=== PATIENT | female | born 1955 | race Caucasian/White ===

== ENCOUNTER 2017-11-26 09:32 | Outpatient (CLI) | payer MEDICARE | END 2017-11-26 09:33 | disposition home or self-care (01) | LOC: BICMAMMO 09:32 | PROVIDERS: ATTEND Family Medicine | DX: Z12.31 Encounter for screening mammogram for malignant neoplasm of breast (principal); Z80.3 Family history of malignant neoplasm of breast | CPT/HCPCS: 77063; 77067 ==

== ENCOUNTER 2019-02-14 00:31 | Emergency (ER) | payer MEDICARE ==
[2019-02-14 01:21] LABS: #Eosinphils 0.3 thou/uL (0.0-0.7); #Lymphocytes 1.6 thou/uL (1.20-3.40); #Neutrophils 8.5 thou/uL (1.40-6.50); %Basophils 0.2 % (0.0-1.0); %Eosinophils 2.6 % (0.0-10.0); %Lymphocytes 13.9 % (21.0-51.0); %Monocytes 8.6 % (0.0-10.0); %Neutrophils 74.7 % (42.0-75.0); Hemoglobin 13.3 g/dL (12.0-16.0); Mean Corpuscular HGB CONC 33.4 g/dL (32.0-36.0); Mean Corpuscular Hemoglobin 31.5 pg (27.0-31.0); Mean Corpuscular Volume 94.4 fL (78.0-98.0); Mean Platelet Volume 7.6 fL (7.4-10.4); Platelet Count 295 thou/uL (130-400); RBC Distribution Width 12.2 % (11.5-14.5); Red Blood Cell (RBC) Count 4.21 mill/uL (4.20-5.40); White Blood Cell (WBC) Count 11.4 thou/uL (4.8-10.8)
[2019-02-14 01:42] LABS: ALT (SGPT) 18 U/L (8-55); AST (SGOT) 19 U/L (5-34); Albumin 4.3 g/dL (3.4-4.8); Alkaline Phosphatase 88 U/L (40-150); Anion Gap 12 mmol/L (10-20); BUN (Urea Nitrogen) 21 mg/dL (9.8-20.1); Bilirubin, Total 0.4 mg/dL (0.2-1.2); Calc. Creatinine Clearance 0 mL/min (70-130); Calcium 11.4 mg/dL (7.8-10.44); Carbon Dioxide 28 mmol/L (23-31); Chloride 103 mmol/L (98-107); Estimated GFR-MDRD 43; Globulin 2.4 g/dL (2.4-3.5); Glucose 109 mg/dL (80-115); Lipase 24 U/L (8-78); Potassium 4.4 mmol/L (3.5-5.1); Protein, Total 6.7 g/dL (6.0-8.3); Sodium 139 mmol/L (136-145)
--- NOTE | 2019-02-14 08:12 | RAD ---
PA CHEST: Date: 02/14/19 HISTORY: Chest pain. FINDINGS: Lungs are clear. Heart and mediastinum unremarkable. Vasculature normal. IMPRESSION: No acute findings. POS: OFF
--- NOTE | 2019-02-18 12:31 | EKG ---
Test Reason : CHEST PAIN Blood Pressure : / mmHG Vent. Rate : 069 BPM Atrial Rate : 069 BPM P-R Int : 186 ms QRS Dur : 094 ms QT Int : 394 ms P-R-T Axes : 038 -14 035 degrees QTc Int : 422 ms Normal sinus rhythm Minimal voltage criteria for LVH, may be normal variant Borderline ECG Confirmed by JESSI CONTRERAS M.D. ([id number]), editorial writer JAVIER ESTEVEZ ([id number]) on 02/18/2019 12:31:17 PM Referred By: AGNES LAO Confirmed By:JESSI CONTRERAS M.D.
== END 2019-02-14 02:07 | disposition home or self-care (01) ==
LOC: ERS 00:31
DX: R07.2 Precordial pain (principal); I10 Essential (primary) hypertension; F31.9 Bipolar disorder, unspecified; F41.9 Anxiety disorder, unspecified; Z79.899 Other long term (current) drug therapy
CPT/HCPCS: 36415; 71045; 80053; 83690; 84484; 85025; 93005

== ENCOUNTER 2019-02-25 14:31 | Inpatient (IN) | payer MEDICARE ==
[~2019-02-25 14:31] MED LIST: ISOVUE-370 76%-LOCM 1 ML ONE
[2019-02-25 14:59] LABS: Actual Bicarbonate (HCO3a) 21.6 mEq/L (22-28); Analyzer IN Cardio ER; Base Excess (BEa) -1.3 mEq/L (-2.0 to +3.0); CO2 Tension 30.7 mmHg (35.0-45.0); Calcium, Ionized 1.18 mmol/L (1.12-1.30); Carboxyhemoglobin (COHb) 0.1 gm% (0.0-3.0); Hemoglobin (Hb) 12.4 g/dL (12.0-16.0); O2 Tension (PaO2) 73.1 mmHg (> 80.0); Potassium - ABG Lab 4.43 mmol/L (3.70-5.30); pH, Arterial 7.47 (7.35-7.45)
[2019-02-25 15:00] LABS: ALV-art Gradient 88.165 (0-20); Puncture Site RRA
--- NOTE | 2019-02-25 15:01 | RAD ---
EXAM: XR Chest 1 View Portable PROVIDED CLINICAL HISTORY: Shortness of breath COMPARISON: 02/14/2019 FINDINGS: Cardiac silhouette appears enlarged. Evaluation is limited by patient body habitus. Prominence of the pulmonary vasculature. Blunting of each costophrenic angle. No definite focal consolidation or pneumothorax. IMPRESSION: Cardiomegaly and findings suggesting congestive failure with bilateral pleural effusions. Follow-up r ecommended.
[2019-02-25 15:06] LABS: #Basophils 0.1 thou/uL (0.0-0.2); #Eosinphils 0.1 thou/uL (0.0-0.7); #Lymphocytes 1.4 thou/uL (1.20-3.40); #Neutrophils 12.4 thou/uL (1.40-6.50); %Basophils 0.4 % (0.0-1.0); %Eosinophils 0.7 % (0.0-10.0); %Lymphocytes 9.6 % (21.0-51.0); %Monocytes 6.7 % (0.0-10.0); %Neutrophils 82.7 % (42.0-75.0); Hemoglobin 11.7 g/dL (12.0-16.0); Mean Corpuscular HGB CONC 32.9 g/dL (32.0-36.0); Mean Corpuscular Volume 94.1 fL (78.0-98.0); Mean Platelet Volume 6.8 fL (7.4-10.4); Platelet Count 554 thou/uL (130-400); RBC Distribution Width 12.2 % (11.5-14.5); Red Blood Cell (RBC) Count 3.78 mill/uL (4.20-5.40)
[2019-02-25 15:30] LABS: ALT (SGPT) 18 U/L (8-55); AST (SGOT) 15 U/L (5-34); Albumin 3.7 g/dL (3.4-4.8); Alkaline Phosphatase 198 U/L (40-150); Anion Gap 13 mmol/L (10-20); BUN (Urea Nitrogen) 13 mg/dL (9.8-20.1); Bilirubin, Total 0.6 mg/dL (0.2-1.2); CK (CPK) 28 U/L (29-168); Calc. Creatinine Clearance 0 mL/min (70-130); Calcium 9.3 mg/dL (7.8-10.44); Carbon Dioxide 22 mmol/L (23-31); Chloride 101 mmol/L (98-107); Estimated GFR-MDRD 59; Globulin 3.1 g/dL (2.4-3.5); Glucose 108 mg/dL (80-115); Lipase 7 U/L (8-78); Potassium 4.4 mmol/L (3.5-5.1); Protein, Total 6.8 g/dL (6.0-8.3); Sodium 132 mmol/L (136-145)
--- NOTE | 2019-02-25 16:11 | CT ---
EXAM: CT pulmonary angiogram with IV contrast and 3-D MIP reconstructions PROVIDED CLINICAL HISTORY: None COMPARISON: None FINDINGS: There is a large pericardial effusion. There are moderate-large bilateral pleural effusions. There is no evidence for central or segmental pulmonary embolus. Bibasilar subsegmental atelectatic changes are noted. No pleural fluid or pneumothorax apparent. No evidence for thoracic lymph node enlargement . The airway appears patent and of normal caliber. There is reflux of contrast material into the hepatic veins suggesting right heart dysfunction. The osseous structures demonstrate no concerning ly tic or blastic lesions. IMPRESSION: 1. No evidence for central or segmental pulmonary embolus. 2. Large pericardial effusion and moderate-large bilateral pleural effusions. 3. Evidence for right heart dysfunction.
[2019-02-25] MEDS ORDERED: Furosemide 40 MG/4 ML VIAL ONE (16:36)
[2019-02-25] MEDS ORDERED: Aspirin Chewable 81 MG TAB ONE (16:36)
[2019-02-25] MEDS ORDERED: Nitroglycerin 2% Ointment 1 INCH/1 GM Packet ONE (16:36)
[2019-02-25 18:10] LABS: Troponin I 0.011 ng/mL (< 0.028)
[2019-02-25] MEDS ORDERED: Ondansetron PF 4 MG/2 ML Vial IVP PRN (18:19)
[2019-02-25] MEDS ORDERED: Ondansetron ODT 4 MG TAB SL PRN (18:19)
--- NOTE | 2019-02-25 18:36 | PDOC.FPRHP ---
- History of Present Illness Chief Complaint: SOB History of Present Illness: Mrs. Smith is a 63 y/o female who presents to the ED with an 11 day history of SOB. She states that she was seen in the ED previously for the same complaint, but had a negative CXR and EKG and was DC'd without intervention or medication. She presents again to with the same complaint and no other associated symptoms. Her was present during the time of the evaluation and assisted with much of the HPI. She denied any recent fevers, chills, N/V/D or night sweats, sick contacts, recent travel, history of malignancy or history of Rheumatoid associated disorders. ED Course: While in the ED, Mrs. Smith's O2Sat was found to be at 90% on Room Air, and she was subsequently placed on 3L NC. An EKG showed low amplitude voltage but was otherwise negative. A CT scan was negative for pulmonary embolus, per the ED staff, but a CXR demonstrated grossly enlarged pericardial effusion and bilateral pulmonary effusions. 40 mg of Lasix were administered via IV and the patient was transferred to the [facility]. - Allergies/Adverse Reactions Allergies Allergy/AdvReac Type Severity Reaction Status Date / Time No Known Allergies Allergy Verified 02/25/19 19:55 - History PMHx: PSHx: FHx: Social: - Review of Systems General: reports: fatigue. denies: fever/chills, weight/appetite/sleep changes , night sweats Eyes: denies: vision changes ENT: denies: nasal congestion, rhinorrhea Respiratory: reports: cough (Light cough without sputum production or hemoptysis - patient rated it as "mild") Cardiovascular: denies: chest pain, palpitation, edema, orthopnea Gastrointestinal: denies: nausea, vomiting, diarrhea, constipation, abdominal pain, GI bleeding Genitourinary: denies: dysuria, discharge Skin: denies: rashes, jaundice Musculoskeletal: denies: pain, tenderness Neurological: denies: syncope, seizure Psychological: reports: anxiety, depression - Vital signs BP: [148/93] HR: [65] RR: [39] Tmax: [] Pox: []% on [] Wt: [] - Physical Exam Constitutional: awake, alert and oriented, well developed, other (Noticeably tachypneic) HEENT: normocephalic and atraumatic, PERRLA, EOMI, conjunctiva clear, grossly normal vision, grossly normal hearing, normal nasal mucosa, MMM Neck: supple, FROM, trachea midline, no JVD Chest: no-tender to palpation, no lesions Heart: other (Diminished heart sounds) Lungs: CTAB, no rales/rhonchi, no wheezing, no retractions Abdomen: soft, non-tender, no masses/distention, no hernias Musculoskeletal: normal structure, normal tone, ROM grossly normal Neurological: no focal deficit, normal sensation Skin: no rash/lesions, no jaundice Heme/Lymphatic: no unusual bruising or bleeding, no purpura, no petechia Psychiatric: good judgment and insight, intact recent and remote memory FMR H&P: Results - Labs Result Diagrams: 02/25/19 18:40 02/25/19 18:40 Lab results: WBC 15.0 thou/uL (4.8-10.8) H 02/25/19 14:45 Hgb 11.7 g/dL (12.0-16.0) L 02/25/19 14:45 Hct 35.6 % (36.0-47.0) L 02/25/19 14:45 MCV 94.1 fL (78.0-98.0) 02/25/19 14:45 Plt Count 554 thou/uL (130-400) H 02/25/19 14:45 Neutrophils % 82.7 % (42.0-75.0) H 02/25/19 14:45 ABG pH 7.47 (7.35-7.45) H 02/25/19 14:48 ABG pCO2 30.7 mmHg (35.0-45.0) L 02/25/19 14:48 ABG pO2 73.1 mmHg (> 80.0) 02/25/19 14:48 Sodium 132 mmol/L (136-145) L 02/25/19 14:45 Potassium 4.4 mmol/L (3.5-5.1) 02/25/19 14:45 Chloride 101 mmol/L (98-107) 02/25/19 14:45 Carbon Dioxide 22 mmol/L (23-31) L 02/25/19 14:45 BUN 13 mg/dL (9.8-20.1) 02/25/19 14:45 Creatinine 0.96 mg/dL (0.6-1.1) 02/25/19 14:45 Glucose 108 mg/dL (80-115) 02/25/19 14:45 Calcium 9.3 mg/dL (7.8-10.44) 02/25/19 14:45 Total Bilirubin 0.6 mg/dL (0.2-1.2) 02/25/19 14:45 AST 15 U/L (5-34) 02/25/19 14:45 ALT 18 U/L (8-55) 02/25/19 14:45 Alkaline Phosphatase 198 U/L (40-150) H 02/25/19 14:45 Creatine Kinase 28 U/L (29-168) L 02/25/19 14:45 B-Natriuretic Peptide 86.4 pg/mL (0-100) 02/25/19 14:45 Serum Total Protein 6.8 g/dL (6.0-8.3) 02/25/19 14:45 Albumin 3.7 g/dL (3.4-4.8) 02/25/19 14:45 Lipase 7 U/L (8-78) L 02/25/19 14:45 - EKG Interpretation EKG: Low Voltage - Radiology Interpretation Chest x-ray Status: image reviewed by me (Pericardial effusion with bilateral pleural effusions) FMR H&P: A/P - Problem List (1) Shortness of breath Current Visit: Yes Status: Acute Code(s): R06.02 - SHORTNESS OF BREATH (2) Pericardial effusion without cardiac tamponade Current Visit: Yes Status: Acute Code(s): I31.3 - PERICARDIAL EFFUSION ( NONINFLAMMATORY) (3) Pleural effusion Current Visit: Yes Status: Acute Code(s): J90 - PLEURAL EFFUSION, NOT ELSEWHERE CLASSIFIED (4) Depression Current Visit: Yes Status: Acute Code(s): F32.9 - MAJOR DEPRESSIVE DISORDER , SINGLE EPISODE, UNSPECIFIED - Plan 1. Acute Hypoxemic Respiratory Failure, likely 2/2 to Pericardial Effusion and Pleural Effusions, bilaterally -Continued shortness of breath and rapid change in CXR concerning due to unknown etiology of above -EKG consistent with pericardial effusion or other obstructive process -Physical exam unremarkable other than tachypnea -STAT ECHO: Pending -Blood Cultures: Pending -Urine Cultures: Pending -CRP: Pending -RA Factor: Pending -HENRI: Pending -RPR: Pending -HIV: Pending -Continue Lasix 40 mg IV -Cardiology consulted, currently awaiting recommendation -Admit to IMCU and maintain O2Sats with nasal canula 2. Pericardial Effusion -See #1 3. Pleural Effusion, Bilaterally -See #1 4. Depression -Restart home medication regimen when patient is stable FMR H&P: Upper Level - Plan Date/Time: 02/25/191834 I, Marcelino Santiago PGY2, have evaluated this patient and agree with findings/ plan as outlined by electrical intern resident. Pertinent changes/additions are listed here. 63 yo F presents for SOB for some weeks. Reports her SOB has increased in the last month. Worse with exertion, endorses orthopnea and paroxysmal nocturnal dyspnea. Has been seen recently in the ED but had relatively normal CXR and was sent home. Today in ED she got CTA chest which shows large pericardial effusion and pleural effusions bilaterally. She sats well on 2L o2 and appears to slightly volume overloaded on exam with +1 pitting edema in LEs. Pt recieved one dose of lasix in ED. Our assessment and plan is as follows. Pericardial effusion A-Unknown etiology at this time. Pt appears to be stable but uncomfortable with work of breathing. No prior cardiac hx. Pt s/p once dose lasix P- admit to IMCU for monitoring -stat ECHO -cards consult -will order labs to workup effusion Pleural effusion A- likely related to cardiac issues. P- treat problems as above -monitor respiratory status closely in IMCU Depression, bipolar -will resume home meds when pt is stable CODE: FULL all other chronic problems per electrical intern note Addendum - Attending - Attending Attestation Date/Time: 02/25/192043 I personally evaluated the patient and discussed the management with Dr. Lama /Pamela. H&P repeated by me. I agree with the History, Examination, Assessment and Plan documented above with any addition or exceptions noted below. 63 y/o WF who was seen in ER on 02/14 for dyspnea- had EKG and CXR which were normal. Over the past week her symptoms of shortness of breath have worsened and so she returned for reevaluation. In ER found to have cardiomegaly and pleural effusions. Denies fever, chills, weight loss, rash, joint pain. Did have a mild cough a nasal congestion a few weeks ago. HR 80, afebrile, O2 sat 94% on 3L NC, RR 24-30 CV: distant heart sounds. No m, g, r Lungs: decreased at bilateral bases Ext: trace to 1+ edema Labs and imaging reviewed. 1) Acute onset pericardial effusion and pleural effusion- differential includes inflammatory vs infections vs malignant- will get CRP, HENRI/RF, RPR, HIV. Stat ECHO. Cardiology consult. To IMCU to ensure monitoring for signs of cardiac tamponade. 2) Depression- continue home meds
[2019-02-25 18:48] LABS: #Lymphocytes 1.1 thou/uL (1.20-3.40); #Monocytes 0.9 thou/uL (0.11-0.59); #Neutrophils 14.1 thou/uL (1.40-6.50); %Eosinophils 0.3 % (0.0-10.0); %Lymphocytes 6.9 % (21.0-51.0); %Monocytes 5.8 % (0.0-10.0); Hemoglobin 11.4 g/dL (12.0-16.0); Mean Corpuscular Volume 94.1 fL (78.0-98.0); Mean Platelet Volume 6.5 fL (7.4-10.4); Platelet Count 504 thou/uL (130-400); RBC Distribution Width 12.2 % (11.5-14.5); Red Blood Cell (RBC) Count 3.66 mill/uL (4.20-5.40); White Blood Cell (WBC) Count 16.2 thou/uL (4.8-10.8)
[2019-02-25 19:16] LABS: ALT (SGPT) 16 U/L (8-55); AST (SGOT) 14 U/L (5-34); Albumin 3.6 g/dL (3.4-4.8); Alkaline Phosphatase 193 U/L (40-150); Anion Gap 13 mmol/L (10-20); BUN (Urea Nitrogen) 13 mg/dL (9.8-20.1); Bilirubin, Total 0.5 mg/dL (0.2-1.2); Calc. Creatinine Clearance 0 mL/min (70-130); Carbon Dioxide 23 mmol/L (23-31); Chloride 101 mmol/L (98-107); Estimated GFR-MDRD 56; Glucose 120 mg/dL (80-115); Potassium 3.9 mmol/L (3.5-5.1); Protein, Total 6.6 g/dL (6.0-8.3); Sodium 133 mmol/L (136-145)
[2019-02-25 19:26] LABS: Syphilis Antibody Nonreactive (Nonreactive); Syphilis Antibody Index 0.05 S/CO (<1.00 Non-Reactive)
[2019-02-25 19:28] LABS: HIV (1/2) Antibody/Antigen Non-Reactive (NonReactive); HIV 1/2 INDEX 0.06 S/CO (<1.00)
[2019-02-25 19:47] VITALS: BMI 45.6
--- NOTE | 2019-02-25 20:29 | CON ---
DATE OF CONSULTATION: 02/25/2019 INDICATION FOR CONSULTATION: A 63-year-old female with a history of shortness of breath for the last 7 days. She recently was in the emergency room complaining of some chest tightness and back tightness. She had a chest x-ray performed and apparently there were no significant abnormalities according to the patient. She has had some improvement for few days, but within the last 7 to 10 days, she has had more shortness of breath and found more difficult to breathe. She again referred to the emergency room, and CT of the chest shows bilateral moderate-sized pleural effusions and also [id number] pericardial effusion. Her blood pressure has remained stable; however, does not appear to be tamponade at this time, but echocardiogram is still pending. She has been given IV Lasix and we will need to be very careful in order not to drop the blood pressure if she has any kind of tamponade physiology. She has had no recent illnesses that she can recall. However, she did say about several days ago, she did have a temperature of 101.3 I believe, but otherwise has not been sick, has not had any other significant past medical history such as pneumonias or flu or influenza. She does have some hypertension, but otherwise denied any hypercholesterolemia or diabetes. She did smoke in the past, she stopped about 20 years ago, but smoked for about 25 years a half-a-pack a day from the age of 17 to 42. She had been placed on blood pressure medicines also, but these were stopped due to rash and she was changed over, she believes to hydrochlorothiazide, and has remained stable. PAST MEDICAL HISTORY: Significant for; 1. Tonsillectomy. 2. Hysterectomy. 3. Cholecystectomy. 4. Nephrolithiasis. SOCIAL HISTORY: She is . She had 1 biological child at age 40, who is now . He had problems with drug use. She smoked in the past. No alcohol. FAMILY HISTORY: Noncontributory. ALLERGIES: NONE. MEDICATIONS: Included the hydrochlorothiazide. In the emergency room, I believe she was given Lasix, aspirin, and nitroglycerin. She also was given subcu Lovenox for DVT prophylaxis and Zofran. REVIEW OF SYSTEMS: She wears glasses to read. Otherwise, a 12-point review of systems is unremarkable except as noted in history of present illness. She has not had any weight gain or weight loss. No neurological complaints. No complaints. No GI complaints. No pulmonary complaints except for the shortness of breath recently. PHYSICAL EXAMINATION: GENERAL: Reveals a well-developed, well-nourished, obese female. VITAL SIGNS: Blood pressure 133/65, heart rate is 77. She is afebrile at this time. HEENT: Shows the head to be normocephalic and atraumatic. Carotid pulses are present. I did not hear any bruits. CHEST: Decreased breath sounds at the bases, but no rales or rhonchi were noted. CARDIOVASCULAR: Heart sounds are somewhat distant. I did not hear any significant murmurs, heaves, thrills, bruits, or rubs. ABDOMEN: Obese with positive bowel sounds. No organomegaly or masses or tenderness are noted. EXTREMITIES: Showed 1+ lower extremity edema. Pedal pulses are present. NEUROLOGIC: She appears to be intact without any focal motor deficits. CARDIOVASCULAR STUDIES: Her EKG shows a normal sinus rhythm with decreased R-wave progression in V1 through V3, which could be compatible with an old anterior myocardial infarction. Otherwise, there were no significant abnormalities noted. LABORATORY STUDIES: Her laboratory data shows a WBC of 16.2, hemoglobin 11.4, hematocrit 34.4, platelet count was 504,000. Her sodium was 132, potassium 4.4, chloride 101, bicarb was 22, creatinine 0.96 with BUN of 13 and blood sugar was 108. Cardiac enzymes were negative. Alkaline phosphatase was 198. Her C-reactive protein was 10.15. BNP was 86. IMAGING STUDIES: Chest x-ray shows evidence of some cardiomegaly, which may be due to the pericardial effusion as well as bilateral pleural effusions. Also, the CT scan is somewhere showing bilateral pleural effusions and a pericardial effusion. Her previous chest x-ray on 02/14/2019, 11 days ago, did not show any significant acute findings. IMPRESSION AND PLAN: New-onset pleural effusions, pericardial effusion patient with shortness of breath, uncertain etiology. She did say she had some fever a few days ago and this may be viral etiology. There is no indication that she had pleural effusions 10 days ago. Laboratory data has already been sent for rheumatological evaluation. Also, laboratory data was sent for thyroid function. It is possible that she has had some viral illness, which may have caused this. On the previous chest x-ray also, did not indicate that the patient had any cardiomegaly and this appears to be an acute problem. I would be very careful with diuretics in this patient, should she have symptoms of tamponade, as we would not want to diurese the patient too much with the pericardial effusion as she would become significantly hypotensive and would require an urgent pericardiocentesis. She was given diuretics in the emergency room and is thus far tolerating that and she has had good urine output. We will continue to monitor her. We will also obtain an urgent or stat echocardiogram for evaluation of the pericardial effusion to see if there is any evidence of pericardial tamponade. As far as her other medical problems such as hypertension, this is under good control at this time with the present medications. Would hold off on the nitroglycerin unless she has EKG changes that would indicate ischemia. Once the pericardial effusion and pleural effusions are addressed, she may need to undergo further evaluation by stress testing. We will be more than happy to continue to follow the patient with you. If there is significant pericardial effusion or any evidence of tamponade, we will ask the CT surgeons to undergo a pericardiocentesis. She may also need to undergo a diagnostic thoracentesis. Job ID: [id number]
[2019-02-25] MEDS ORDERED: Lactated Ringer's 1,000 ML IV SCH (21:00)
[2019-02-25 21:06] LABS: Band 4 % (5-11); Hemoglobin 11.9 g/dL (12.0-16.0); Lymphocytes 10 % (21-51); MDiff Complete? YES; Mean Corpuscular HGB CONC 33.2 g/dL (32.0-36.0); Mean Corpuscular Hemoglobin 31.4 pg (27.0-31.0); Mean Corpuscular Volume 94.7 fL (78.0-98.0); Mean Platelet Volume 6.8 fL (7.4-10.4); Monocytes 5 % (0-10); Neutrophil 81 % (42-75); Platelet Count 567 thou/uL (130-400); Platelet Morphology Comment Appears Increased; RBC Distribution Width 12.3 % (11.5-14.5); RBC Morphology Normal; Red Blood Cell (RBC) Count 3.78 mill/uL (4.20-5.40); White Blood Cell (WBC) Count 16.6 thou/uL (4.8-10.8)
[2019-02-25 21:16] LABS: Troponin I 0.025 ng/mL (< 0.028)
[2019-02-25] MEDS ORDERED: Nitroglycerin 2% Ointment 1 INCH/1 GM Packet TOP SCH (22:00)
[2019-02-26] MEDS ORDERED: Furosemide 40 MG/4 ML VIAL SLOW IVP SCH (04:00)
--- NOTE | 2019-02-26 05:17 | PDOC.FM ---
- Subjective Subjective: Mrs. Smith was resting comfortably at the time of evaluation and reported no overnight events. She denies any chest pain, shortness of breath or N/V/D. She states that her breathing has greatly improved since her presentation to the ED. - Objective Vital Signs & Weight: Vital Signs (12 hours) Temp Pulse Resp BP Pulse Ox 02/26/19 03:57 98.8 F 02/25/19 23:41 97.7 F 02/25/19 22:12 80 27 H 115/78 91 L 02/25/19 21:00 79 22 H 95 02/25/19 20:00 75 25 H 133/65 92 L 02/25/19 19:47 98.4 F 02/25/19 19:00 78 27 H 133/65 93 L Weight Weight 105.868 kg Most Recent Monitor Data Heart Rate from ECG 78 NIBP 131/72 NIBP BP-Mean 91 Respiration from ECG 26 SpO2 93 I&O: 02/24/19 02/25/19 02/26/19 06:59 06:59 06:59 Output Total 250 Balance -250 Result Diagrams: 02/25/19 20:41 02/25/19 18:40 Phys Exam - Physical Examination Constitutional: NAD HEENT: PERRLA, moist MMs, sclera anicteric, oral pharynx no lesions Neck: no nodes, no JVD, supple, full ROM Respiratory: no wheezing, no rales, no rhonchi, clear to auscultation bilateral Poor air movement Cardiovascular: no significant murmur, no rub Muffled heart sounds, difficult to assess via auscultation Gastrointestinal: soft, non-tender, no distention, positive bowel sounds Musculoskeletal: no edema, pulses present Neurological: non-focal, moves all 4 limbs Lymphatic: no nodes Psychiatric: normal affect Skin: no rash Dx/Plan (1) Shortness of breath Code(s): R06.02 - SHORTNESS OF BREATH Status: Acute (2) Pericardial effusion without cardiac tamponade Code(s): I31.3 - PERICARDIAL EFFUSION (NONINFLAMMATORY) Status: Acute (3) Pleural effusion Code(s): J90 - PLEURAL EFFUSION, NOT ELSEWHERE CLASSIFIED Status: Acute (4) Depression Code(s): F32.9 - MAJOR DEPRESSIVE DISORDER, SINGLE EPISODE, UNSPECIFIED Status : Acute - Plan Plan: 1. Acute Hypoxemic Respiratory Failure, likely 2/2 to Pericardial Effusion and Pleural Effusions, bilaterally -Continued shortness of breath and rapid change in CXR concerning due to unknown etiology of above -EKG consistent with pericardial effusion or other restrictive process -Physical exam unremarkable other than tachypnea and muffled heart sounds - breathing greatly improved since 02/25 -STAT Echo: Early Cardiac Tamponade -Blood Cultures: Pending -Urine Cultures: Pending -CRP: 10.15 (H) -RA Factor: Pending -HENRI: Pending -RPR: Negative -HIV: Negative -Cardiology consulted on 02/25 - currently awaiting additional recommendations -CV Surgery consulted on 02/26 - will perform pericardial window on 02/26 2. Pericardial Effusion -See #1 3. Pleural Effusion, Bilaterally -See #1 4. Depression -Restart home medication regimen when patient is stable Dispo: Continue to augment respiratory efforts with O2 3L via nasal canula. Await additional recommendations from Cardiology and/or CV Surgery. Addendum - Attending - Attending Attestation Date/Time: 02/26/19 1045 I personally evaluated the patient and discussed the management with Dr. Lama at 0730 am. I agree with the History, Examination, Assessment and Plan documented above with any addition or exceptions noted below. Large pericardial effusion with early tamponade seen on ECHO- appreciate cards and CV surgery recs. To OR for pericardial window. No obvious source. Will see what pericardial fluid shows and f/u on HENRI/RF once they return. Possible viral origin. Pleural effusions- repeat CXR in am to monitor size
[2019-02-26] MEDS ORDERED: Fentanyl 100 MCG/2 ML VIAL ONE (07:41)
[2019-02-26] MEDS: Enoxaparin Sodium 40 MG/0.4 ML SYRINGE SC SCH (08:15)
[2019-02-26] MEDS ORDERED: traMADol HCl 50 MG TAB PO PRN (09:17)
[2019-02-26] MEDS ORDERED: Fentanyl 100 MCG/2 ML VIAL SLOW IVP PRN (09:17)
[2019-02-26] MEDS ORDERED: SUGAMMADEX SODIUM 200 MG/2 ML VIAL ONE (09:28)
[2019-02-26] MEDS ORDERED: Albuterol Sulfate 1.25 MG/3 ML NEB ONE (09:42)
--- NOTE | 2019-02-26 09:45 | CON ---
DATE OF CONSULTATION: HISTORY OF PRESENT ILLNESS: A 63-year-old female, who is previously in fairly good health, lives a very sedentary life, who has noticed some dyspnea even with her minimal activities for the past week. She was seen about a month ago with an x-ray that was rather unremarkable when her symptoms initially began mildly. On this admission, her chest x-ray showed a much larger cardiac silhouette, and the CT scan confirmed bilateral pleural effusions and pericardial effusions. Cardiac echo showed pre-tamponade findings with normal left ventricular function. PAST MEDICAL HISTORY: Includes hypertension. She has a remote smoking history, but none in about 20 years. PAST SURGICAL HISTORY: Includes hysterectomy and cholecystectomy. SOCIAL HISTORY: She lives with her . She states that her day usually consist of sitting in front of the TV and sleeping. MEDICATIONS: Include hydrochlorothiazide with no allergies. PHYSICAL EXAMINATION: GENERAL: Obese female in no distress. VITAL SIGNS: BMI of 42, blood pressure of 127, heart rate of 80. NECK: No carotid bruits. LUNGS: Clear breath sounds anteriorly. CARDIAC: Distant heart sounds. No murmurs. ABDOMEN: Quite obese, protuberant, nontender. EXTREMITIES: Mild bilateral pretibial edema. IMAGING STUDIES: EKG, poor R-wave progression. LABORATORY DATA: Slightly elevated white count 12 to 16,000. Enzymes were negative. PLAN: At this time is for pericardial window and informed consent has been obtained. Job ID: [id number]
[2019-02-26 09:56] LABS: RBC Count-Automated (BF) 700076 /cumm; WBC/Nucleated-Auto (BF) 1851 uL
[2019-02-26 10:15] LABS: BF Color Red; Body Fluid Source Pericardial Fluid; Clarity Cloudy/Turbid (Clear); Tube # EDTA
[2019-02-26 11:54] LABS: BF Segmented Neutrophils 37 %; Cell Count Non Hematic 5 %; Lymphocytes 57 %
[2019-02-26] MEDS ORDERED: PROPOFOL 200 MG/20 ML VIAL ONE (16:08)
[2019-02-26] MEDS ORDERED: Glycopyrrolate 0.2 MG/ML 5 ML SYRINGE ONE (16:08)
[2019-02-26] MEDS ORDERED: Dexamethasone 20 MG/5 ML VIAL ONE (16:08)
[2019-02-26] MEDS ORDERED: Ondansetron PF 4 MG/2 ML Vial ONE (16:08)
[2019-02-26] MEDS ORDERED: Lidocaine 1% PF 5 ML VIAL ONE (16:08)
[2019-02-26] MEDS ORDERED: Rocuronium Bromide 10 MG/ML (10ML VIAL) ONE (16:08)
[2019-02-27] MEDS: Enoxaparin Sodium 40 MG/0.4 ML SYRINGE SC SCH (08:29)
--- NOTE | 2019-02-27 09:09 | PDOC.FM ---
- Subjective Subjective: NAEO. Patient is post-op dya #1 s/p pericardial window and reports SOB mainly when getting back into bed after getting out. Denies any chest pain, fever/ chills, N/V/D. Denies any FH of AI conditions that she knows of. - Objective MAR Reviewed: Yes Vital Signs & Weight: Vital Signs (12 hours) Temp 02/27/19 07:23 97.1 F L 02/27/19 04:00 97.4 F L 02/27/19 00:00 97.4 F L Weight Weight 106.549 kg Most Recent Monitor Data Heart Rate from ECG 73 NIBP 126/62 NIBP BP-Mean 83 Respiration from ECG 25 SpO2 90 I&O: 02/26/19 02/27/19 02/28/19 06:59 06:59 06:59 Intake Total 358 940 Output Total 375 1025 - Result Diagrams: 03/01/19 04:17 03/01/19 04:17 Phys Exam - Physical Examination Constitutional: NAD HEENT: moist MMs, sclera anicteric Neck: supple, full ROM Respiratory: no wheezing, no rales, no rhonchi, clear to auscultation bilateral Cardiovascular: RRR, no significant murmur Musculoskeletal: no edema, pulses present Neurological: non-focal, moves all 4 limbs Psychiatric: normal affect, A&O x 3 Skin: no rash, normal turgor Dx/Plan (1) Bipolar disorder Code(s): F31.9 - BIPOLAR DISORDER, UNSPECIFIED Status: Chronic (2) Depression Code(s): F32.9 - MAJOR DEPRESSIVE DISORDER, SINGLE EPISODE, UNSPECIFIED Status : Chronic (3) Pericardial effusion without cardiac tamponade Code(s): I31.3 - PERICARDIAL EFFUSION (NONINFLAMMATORY) Status: Acute (4) Pleural effusion Code(s): J90 - PLEURAL EFFUSION, NOT ELSEWHERE CLASSIFIED Status: Acute (5) Shortness of breath Code(s): R06.02 - SHORTNESS OF BREATH Status: Acute - Plan Plan: Acute Hypoxemic Respiratory Failure 2/2 to Pericardial Effusion and b/l Pleural Effusions of unknown etiology - s/p pericardial window with persistent O2 requirements to maintain sat in low 90s. Currently stable on 1L NC. - RA & HENRI as well as peripheral smear review pending. HIV & RPR negative. - Cardiology & CV surg on board, appreciate recs. Pericardial Effusion -See #1 Pleural Effusion, Bilaterally - Will get a repeat CXR today due to persistent oxygen requirements s/p window Bipolar disorder with Depression -Continue home medication regimen. Dispo: Continue to wean supplemental O2 as tolerated by patient and consider moving out to floor later today. Effusion w/u pending. Awaiting any additional recommendations from Cardiology and/or CV Surgery. Addendum - Attending - Attending Attestation Date/Time: 02/27/19 9183 I personally evaluated the patient and discussed the management with Dr. Tristan I agree with the History, Examination, Assessment and Plan documented above with any addition or exceptions noted below. 63 yo female with history of bipolar d/o admitted for partial tamponade 2/2 pericardial effusion. HD#2 POD#1 Patient reports she is feeling better this morning. Still with fatigue and SOB. No fevers overnight. VS, labs, imaging reviewed. Agree with PE documented by resident 1. Pericardial disease: Pericardial effusion. s/p pericardial window on 02/26. Removal of 500 mL. Etiology unknown at this time. Per hx likely viral. Common etiology workup pending. Patient appears to be low risk for causes. No travel. No exposures. Will rule out immune, viral (Enterovirus family), fungal (cx), bacterial (cx). Cytology added to help determine source if infectious related. Will continue to follow up with CT surg. Move to tele this afternoon. Discuss with cards and CT surg. 2. Pleural effusions: Improving. Continue lasix. 3. Acute hypoxic respiratory distress: Continue supplemental O2. 4. Bipolar d/o: Restart home meds. Transfer to tele. Monitor throughout the day. Melo
--- NOTE | 2019-02-27 10:23 | RAD ---
EXAM: Chest 2 views: HISTORY: Hypoxia still needing oxygen COMPARISON: 02/25/2019 FINDINGS: There is an enlarged but stable cardiomediastinal silhouette. There is small left pleural effusion. The bones are unremarkable. IMPRESSION: Small left pleural effusion
--- NOTE | 2019-02-27 11:24 | OP ---
DATE OF PROCEDURE: 02/26/2019 PREOPERATIVE DIAGNOSIS: Pericardial effusion. PROCEDURE PERFORMED: Pericardial window with biopsy of pericardium. ANESTHESIA: General. ESTIMATED BLOOD LOSS: Less than 10 mL. FINDINGS: The patient had 500 mL of bloody thin pericardial fluid. DESCRIPTION OF PROCEDURE: After adequate anesthesia had been obtained, incision was made in the midline over the xiphoid process and then extended along the xiphoid process in the midline, dividing the linea alba. Blunt dissection and Bovie dissection were carried out to the pericardium, which was then opened and sample obtained and the fluid removed. Pericardium 1 cm2 section was excised for a biopsy for permanent section. A #19 Rodney drain was then placed through a separate stab incision. Fascia reapproximated with Vicryl [id number] sutures in the subcutaneous tissue and skin were closed in layers. The patient tolerated the procedure well. Job ID: [id number]
--- NOTE | 2019-02-27 11:31 | PDOC.CPN ---
- Subjective Date: 02/27/19 Time: 11:41 Interval history: The pt seen and examined. No overnight events. No cardiac complaints. - Objective Allergies/Adverse Reactions: Allergies Allergy/AdvReac Type Severity Reaction Status Date / Time No Known Allergies Allergy Verified 02/25/19 19:55 Visit Medications: Current Medications Enoxaparin Sodium (Lovenox) 40 mg SC 0900 [facility] Last Admin: 02/27/19 08:29 Dose: 40 mg Fentanyl (Sublimaze) 25 mcg SLOW IVP Q2H PRN PRN Reason: SEVERE Pain (7-10) Sodium Chloride (Flush - Normal Saline) 10 ml IVF Q12HR [facility] Last Admin: 02/27/19 08:29 Dose: 10 ml Sodium Chloride (Flush - Normal Saline) 10 ml IVF PRN PRN PRN Reason: Saline Flush Tramadol HCl (Ultram) 50 mg PO Q6H PRN PRN Reason: MILD TO MODERATE Pain (1-6) Vital Signs & Weight: Vital Signs Temp Pulse Ox 02/27/19 11:16 98.8 F 02/27/19 08:30 93 L 02/27/19 07:23 97.1 F L 02/27/19 04:00 97.4 F L 02/27/19 00:00 97.4 F L Weight 234 lb 14.4 oz - Physical Exam General: alert & oriented x3 HEENT: mucus membranes moist Neck: supple neck Cardiac: regular rate and rhythm, S1/S2 Lungs: decreased breath sounds Neuro: cranial nerve 2-12 intact Abdomen: unremarkable Skin: clear Musculoskeletal: normal range of motion - Labs Result Diagrams: 02/25/19 20:41 02/25/19 18:40 Troponin/CKMB Troponin I 0.025 ng/mL (< 0.028) 02/25/19 20:42 - Telemetry Sinus rhythms and dysrhythmias: sinus rhythm - Assessment/Plan Assessment/Plan: 1. Pericaridal Effusion with pre-Tamponade with s/p pericardial window on 2018 - stable with 1LNC; cont. to monitor with strict I&O 2. Pleural effusion - today's CXR showed small Lt pleural effusion; stable with 1LNC 3. Bipolar disorder MAR reviewed * Echo on 02/26/2019 with EF 60-65%, mild LVH, trace MR, mild TR, and mod- severe pleural effusion Pt. seen and eval. by me. I agree with the A/P by the RESIDENTIAL FRAMING CARPENTER. She is still slightly SOB. I will add low dose lasix. Await pathology on pericardial fluid. RRR, decrease resp. effort. Left basilar expiratory wheeze. fior
[2019-02-27] MEDS ORDERED: Furosemide 20 MG TAB PO SCH (16:30)
--- NOTE | 2019-02-28 06:50 | PDOC.FM ---
- Subjective Subjective: Patient had a few runs of V-tach yesterday afternoon, the longest being 21 beats but was asymptomatic. Remains stable on minimal required supplemental O2. Denies any chest pain, fever/chills, N/V/D. Does endorse minimal persistent SOB with exertion. - Objective MAR Reviewed: Yes Vital Signs & Weight: Vital Signs (12 hours) Temp Pulse Resp BP BP Pulse Ox 02/28/19 04:00 98.6 F 72 18 142/66 H 92 L 02/28/19 00:00 98.3 F 78 16 138/66 92 L 02/27/19 20:00 98.6 F 77 22 H 139/64 94 L Weight Weight 106.549 kg Most Recent Monitor Data Heart Rate from ECG 73 NIBP 134/60 NIBP BP-Mean 84 Respiration from ECG 23 SpO2 94 I&O: 02/26/19 02/27/19 02/28/19 06:59 06:59 06:59 Intake Total 756 234 4649 Output Total 375 1025 640 Balance -17 676 Result Diagrams: 03/01/19 04:17 03/01/19 04:17 Phys Exam - Physical Examination Constitutional: NAD HEENT: moist MMs, sclera anicteric Neck: supple, full ROM Respiratory: no rales, no rhonchi, wheezing present, clear to auscultation bilateral Cardiovascular: RRR, no significant murmur Neurological: non-focal, moves all 4 limbs Psychiatric: normal affect, A&O x 3 Skin: no rash, normal turgor Dx/Plan (1) Bipolar disorder Code(s): F31.9 - BIPOLAR DISORDER, UNSPECIFIED Status: Chronic (2) Depression Code(s): F32.9 - MAJOR DEPRESSIVE DISORDER, SINGLE EPISODE, UNSPECIFIED Status : Chronic (3) Pericardial effusion without cardiac tamponade Code(s): I31.3 - PERICARDIAL EFFUSION (NONINFLAMMATORY) Status: Acute (4) Pleural effusion Code(s): J90 - PLEURAL EFFUSION, NOT ELSEWHERE CLASSIFIED Status: Acute (5) Shortness of breath Code(s): R06.02 - SHORTNESS OF BREATH Status: Acute - Plan Plan: Acute Hypoxemic Respiratory Failure 2/2 to Pericardial Effusion and b/l Pleural Effusions of unknown etiology - s/p pericardial window on 02/26 with persistent O2 requirements to maintain sat in low 90s. Currently stable on 1L NC. - RA & HENRI as well as peripheral smear review pending. Will add viral studies to pericardial fluid as well today including PCR for enterovirus, CMV, echo and paraechovirus. Initial pericardial fluid gram stain + for gram negative rods so IV vancomycin was started overnight although would expect patient to be more ill if she truly had a purulent pericardial effusion. Will continue pending Cx results. Will also add fungal cultures, cytology, AFB stain & culture & histoplasmosis testing to fluid to further investigate possible infectious etiologies. - HIV & RPR negative. - Cardiology & CV surg on board, appreciate recs. Nonsustained Vtach - Tele monitor showed patient had 3 runs of non-sustained vtach yesterday afternoon. Patient reports she was asymptomatic at the time. - Cards on board, appreciate recs. Pericardial Effusion -See #1 Pleural Effusion, Bilaterally - Repeat CXR yesterday showed a persistent small L-sided pleural effusion. s/p 10mg PO lasix yesterday. Will continue per cards recs. Bipolar disorder with Depression -Continue home medication regimen. Dispo: Continue to wean supplemental O2 as tolerated by patient & continue close monitoring on telemetry. Addendum - Attending - Attending Attestation Date/Time: 02/28/19 1010 I personally evaluated the patient and discussed the management with Dr. Tristan I agree with the History, Examination, Assessment and Plan documented above with any addition or exceptions noted below. 63 yo female with history of bipolar d/o admitted for partial tamponade 2/2 pericardial effusion. HD#3 POD#2 Noted to have Vtachy overnight. Asymptomatic. No other acute changes. Reports she continue to feel better. Still on O2. VS, labs, imaging reviewed. Agree with PE documented by resident 1. Pericardial disease: Pericardial effusion. s/p pericardial window on 02/26. Removal of 500 mL. Etiology unknown at this time. Per hx likely viral. Common etiology workup pending. Bacterial cultures to result later today. 2. Pleural effusions: Improving. Continue lasix. 3. Acute hypoxic respiratory distress: Continue supplemental O2. Improving. 4. Bipolar d/o: Continue home meds. 5. Vtach: Cards to eval. Nonsustained. Monomorphic. No structural heart disease on ECHO. Consider adding BB. Monitor throughout the day. Follow up on bacterial cx. ABrayMD
[2019-02-28 07:17] LABS: #Basophils 0.1 thou/uL (0.0-0.2); #Eosinphils 0.3 thou/uL (0.0-0.7); #Lymphocytes 1.8 thou/uL (1.20-3.40); #Monocytes 0.9 thou/uL (0.11-0.59); #Neutrophils 8.5 thou/uL (1.40-6.50); %Basophils 0.7 % (0.0-1.0); %Lymphocytes 15.8 % (21.0-51.0); %Monocytes 7.5 % (0.0-10.0); %Neutrophils 73.1 % (42.0-75.0); Hemoglobin 11.8 g/dL (12.0-16.0); Mean Corpuscular HGB CONC 32.6 g/dL (32.0-36.0); Mean Corpuscular Volume 95.2 fL (78.0-98.0); Mean Platelet Volume 6.6 fL (7.4-10.4); Platelet Count 531 thou/uL (130-400); Red Blood Cell (RBC) Count 3.81 mill/uL (4.20-5.40); White Blood Cell (WBC) Count 11.7 thou/uL (4.8-10.8)
[2019-02-28 08:48] LABS: ALT (SGPT) 12 U/L (8-55); AST (SGOT) 14 U/L (5-34); Albumin 3.3 g/dL (3.4-4.8); Alkaline Phosphatase 128 U/L (40-150); Anion Gap 10 mmol/L (10-20); BUN (Urea Nitrogen) 12 mg/dL (9.8-20.1); Bilirubin, Total 0.4 mg/dL (0.2-1.2); Calc. Creatinine Clearance 126 mL/min (70-130); Carbon Dioxide 28 mmol/L (23-31); Chloride 101 mmol/L (98-107); Estimated GFR-MDRD 74; Globulin 2.8 g/dL (2.4-3.5); Glucose 92 mg/dL (80-115); Potassium 3.8 mmol/L (3.5-5.1); Protein, Total 6.1 g/dL (6.0-8.3); Sodium 135 mmol/L (136-145)
[2019-02-28] MEDS ORDERED: Furosemide 20 MG TAB PO SCH ×2 (09:00→10:30)
[2019-02-28] MEDS: Potassium Chloride 10 MEQ TAB PO SCH (09:19)
[2019-02-28] MEDS: Enoxaparin Sodium 40 MG/0.4 ML SYRINGE SC SCH (09:20)
[2019-02-28] MEDS: Vancomycin HCl 1.5 GM in Sodium Chloride 0.9% 250 ML 300 ML IVPB SCH ×2 (10:17→20:49)
--- NOTE | 2019-02-28 11:01 | PDOC.CPN ---
- Subjective Date: 02/28/19 Time: 10:30 - Review of Systems General: reports: fatigue Respiratory: reports: shortness of breath Gastrointestinal: reports: constipation - Objective Allergies/Adverse Reactions: Allergies Allergy/AdvReac Type Severity Reaction Status Date / Time No Known Allergies Allergy Verified 02/25/19 19:55 Visit Medications: Current Medications Albuterol/Ipratropium (Duoneb) 3 ml NEB [id number] PRN PRN Reason: SOB &/or Wheezing Albuterol/Ipratropium (Duoneb) 3 ml NEB ONE [facility] Enoxaparin Sodium (Lovenox) 40 mg SC 09 [facility] Last Admin: 02/28/19 09:20 Dose: 40 mg Fentanyl (Sublimaze) 25 mcg SLOW IVP Q2H PRN PRN Reason: SEVERE Pain (7-10) Furosemide (Lasix) 40 mg PO DAILY [facility] Last Admin: 02/28/19 10:41 Dose: 40 mg Furosemide (Lasix) 40 mg PO NOW [facility] Stop: 02/28/19 12:30 Last Admin: 02/28/19 10:42 Dose: 40 mg Vancomycin HCl 1.5 gm/ Sodium (Chloride) 300 mls @ 150 mls/hr IVPB Q12HR [facility] Last Admin: 02/28/19 10:17 Dose: 300 mls Lamotrigine (Lamictal) 400 mg PO DAILY [facility] Miscellaneous Medication (Pharmacy To Dose) 1 each IVPB PRN PRN PRN Reason: Pharmacy to dose Non-Formulary Medication (Bupropion Hcl [Bupropion Hcl Er]) 300 mg PO DAILY [facility] Non-Formulary Medication (Fluoxetine Hcl [Fluoxetine Hcl]) 60 mg PO DAILY [facility] Potassium Chloride (Klor-Con 10) 10 meq PO QAM-WM [facility] Last Admin: 02/28/19 09:19 Dose: 10 meq Sodium Chloride (Flush - Normal Saline) 10 ml IVF Q12HR [facility] Last Admin: 02/28/19 09:23 Dose: 10 ml Sodium Chloride (Flush - Normal Saline) 10 ml IVF PRN PRN PRN Reason: Saline Flush Tramadol HCl (Ultram) 50 mg PO Q6H PRN PRN Reason: MILD TO MODERATE Pain (1-6) Vital Signs & Weight: Vital Signs Temp Pulse Resp BP Pulse Ox 02/28/19 07:12 97.8 F 77 20 152/73 H 93 L 02/28/19 04:00 98.6 F 72 18 142/66 H 92 L 02/28/19 00:00 98.3 F 78 16 138/66 92 L Weight 234 lb 14.4 oz - Physical Exam Neck: supple neck, no JVD/HJR Cardiac: regular rate and rhythm, no murmur Lungs: clear to auscultation, no wheezes Neuro: grossly intact Abdomen: soft Skin: other (pericardial drain still in.Clear serous drainage.) - Labs Result Diagrams: 02/28/19 06:59 02/28/19 06:59 Troponin/CKMB Troponin I 0.025 ng/mL (< 0.028) 02/25/19 20:42 - Assessment/Plan Assessment/Plan: 1. Pericaridal Effusion with pre-Tamponade with s/p pericardial window on 2018 - stable with 1LNC; cont. to monitor with strict I&O 2. Pleural effusion - CXR yesterday showed small Lt pleural effusion; stable with 1LNC. increased urine output with lasix. Continue and increase to 40mg qd. 3. Bipolar disorder MAR reviewed * Echo on 02/26/2019 with EF 60-65%, mild LVH, trace MR, mild TR, and mod- severe pleural effusion. 500ml removed from the pericardium, Preliminary report: Corynebacterium.
[2019-02-28] MEDS ORDERED: Polyethylene Glycol 3350 17 GM Packet PO PRN (11:03)
[2019-02-28] MEDS ORDERED: FLUoxetine HCl 20 MG CAP PO SCH (11:45)
[2019-02-28] MEDS ORDERED: lamoTRIgine 100 MG TAB PO SCH ×2 (11:45→12:00)
[2019-02-28] MEDS ORDERED: Bupropion 150 MG XL TAB PO SCH (11:45)
[2019-02-28] MEDS: Bisacodyl 5 MG TAB PO PRN (12:01)
[2019-03-01 05:03] LABS: #Basophils 0.1 thou/uL (0.0-0.2); #Eosinphils 0.6 thou/uL (0.0-0.7); #Lymphocytes 1.7 thou/uL (1.20-3.40); #Monocytes 0.8 thou/uL (0.11-0.59); #Neutrophils 8.8 thou/uL (1.40-6.50); %Basophils 0.5 % (0.0-1.0); %Eosinophils 4.9 % (0.0-10.0); %Lymphocytes 14.4 % (21.0-51.0); %Monocytes 6.4 % (0.0-10.0); %Neutrophils 73.7 % (42.0-75.0); Hemoglobin 11.4 g/dL (12.0-16.0); Mean Corpuscular HGB CONC 33.1 g/dL (32.0-36.0); Mean Corpuscular Volume 93.5 fL (78.0-98.0); Mean Platelet Volume 6.9 fL (7.4-10.4); Platelet Count 567 thou/uL (130-400); RBC Distribution Width 12.1 % (11.5-14.5); Red Blood Cell (RBC) Count 3.67 mill/uL (4.20-5.40); White Blood Cell (WBC) Count 11.9 thou/uL (4.8-10.8)
[2019-03-01 05:27] LABS: ALT (SGPT) 11 U/L (8-55); AST (SGOT) 13 U/L (5-34); Albumin 3.2 g/dL (3.4-4.8); Alkaline Phosphatase 119 U/L (40-110); Anion Gap 13 mmol/L (10-20); BUN (Urea Nitrogen) 13 mg/dL (9.8-20.1); Bilirubin, Total 0.4 mg/dL (0.2-1.2); Calc. Creatinine Clearance 118 mL/min (70-130); Calcium 8.9 mg/dL (7.8-10.44); Carbon Dioxide 28 mmol/L (23-31); Chloride 98 mmol/L (98-107); Estimated GFR-MDRD 69; Globulin 2.7 g/dL (2.4-3.5); Glucose 90 mg/dL (80-115); Potassium 3.6 mmol/L (3.5-5.1); Protein, Total 5.9 g/dL (6.0-8.3); Sodium 135 mmol/L (136-145)
--- NOTE | 2019-03-01 07:13 | PDOC.FM ---
- Subjective Subjective: Patient reports continued improvement in her sob. Denies any chest pain or fever /chills. Has not yet walked in the halls with PT an would like to do this today. - Objective MAR Reviewed: Yes Vital Signs & Weight: Vital Signs (12 hours) Temp Pulse Resp BP Pulse Ox 03/01/19 04:00 98.2 F 79 20 144/66 H 97 02/28/19 20:00 98.0 F 81 22 H 144/64 H 94 L Weight Weight 106.549 kg Most Recent Monitor Data Heart Rate from ECG 73 NIBP 134/60 NIBP BP-Mean 84 Respiration from ECG 23 SpO2 94 I&O: 02/28/19 03/01/19 03/02/19 06:59 06:59 06:59 Intake Total 1316 1820 Output Total 640 25 Balance 676 1795 Result Diagrams: 03/01/19 04:17 03/01/19 04:17 Phys Exam - Physical Examination Constitutional: NAD HEENT: moist MMs Neck: supple, full ROM Respiratory: no wheezing, no rales, no rhonchi, clear to auscultation bilateral Cardiovascular: RRR, no significant murmur Neurological: non-focal, moves all 4 limbs Psychiatric: normal affect, A&O x 3 Dx/Plan (1) Bipolar disorder Code(s): F31.9 - BIPOLAR DISORDER, UNSPECIFIED Status: Chronic (2) Depression Code(s): F32.9 - MAJOR DEPRESSIVE DISORDER, SINGLE EPISODE, UNSPECIFIED Status : Chronic (3) Pericardial effusion without cardiac tamponade Code(s): I31.3 - PERICARDIAL EFFUSION (NONINFLAMMATORY) Status: Acute (4) Pleural effusion Code(s): J90 - PLEURAL EFFUSION, NOT ELSEWHERE CLASSIFIED Status: Acute (5) Shortness of breath Code(s): R06.02 - SHORTNESS OF BREATH Status: Acute (6) Elevated blood pressure reading without diagnosis of hypertension Code(s): R03.0 - ELEVATED BLOOD-PRESSURE READING, W/O DIAGNOSIS OF HTN Status : Acute - Plan Plan: Acute Hypoxemic Respiratory Failure 2/2 to Pericardial Effusion and b/l Pleural Effusions of unknown etiology - s/p pericardial window on 02/26 with persistent O2 requirements to maintain sat in low 90s. Currently stable on 0.5L NC. Drain removed this AM by CV surg. - RA & HENRI pending. Will add viral studies to pericardial fluid as well today including PCR for enterovirus, CMV, echo and paraechovirus. Initial pericardial fluid gram stain + for gram negative rods, suspected to be corynebacterium which per CV surg is likely a contaminant. Also agree given fact that patient is not ill-appearing, afebrile, etc. However, will switch from vanc to unasyn for better coverage pending final Cx results & sensitivities. Fungal cultures, AFB stain & culture & histoplasmosis testing to fluid to further investigate possible infectious etiologies. Cytology of fluid noted mostly blood and a few reactive macrophages, histiocytes & mesothelial cells. peripheral smear noted a normocytic, normochromic anemia with a reactive leukocytosis. - HIV & RPR negative. CRP now downtrending - Cardiology & CV surg on board, appreciate recs. - PT consulted yesterday to evaluate pt for any PT needs upon d/c Nonsustained Vtach - Tele monitor showed patient had 3 runs of non-sustained vtach 2 days ago but none noted since. Patient reports she was asymptomatic at the time. - Cards on board, appreciate recs. Pericardial Effusion -See #1 Pleural Effusion, Bilaterally - Repeat CXR on 02/27 showed a persistent small L-sided pleural effusion. Will continue 40mg PO lasix per cards recs. Bipolar disorder with Depression -Continue home medication regimen. normocytic normochromic anemia - Patient needs an outpatient w/u with PCP to determine etiology of anemia. Will add a ferritin level to AM labs today & start a multivitamin w/ iron in the meantime. Elevated BP w/o diganosis of HTN - BP have been persistently >140 systolic since admission. Will start on low dose GABE-I today & titrate PRN. Dispo: Continue to wean supplemental O2 as tolerated by patient & await eval from PT for possible placement recs. Addendum - Attending - Attending Attestation Date/Time: 03/01/19 1224 I personally evaluated the patient and discussed the management with Dr. Tristan I agree with the History, Examination, Assessment and Plan documented above with any addition or exceptions noted below. 63 yo female with history of bipolar d/o admitted for partial tamponade 2/2 pericardial effusion. HD#4 POD#3 No acute events overnight. Requiring less O2. Will be able to work with PT later today. Drain removed this AM. VS, labs, imaging reviewed. Agree with PE documented by resident 1. Pericardial disease: Pericardial effusion. s/p pericardial window on 02/26. Removal of 500 mL. Etiology unknown at this time. Per hx likely viral. Bacterial cx positive. CT surg concern its related to contaminant due to bacterial. Will discuss with micro to continue to speciate out. Will discuss case with ID. Add pcn for coverage for now. WBC improving. CRP still elevated. HENRI negative. 2. Pleural effusions: Improving. Continue lasix. 3. Acute hypoxic respiratory distress: Continue supplemental O2. Improving. Wean as tolerated. 4. Bipolar d/o: Continue home meds. 5. Vtach: Cards to eval. Nonsustained. Monomorphic. No structural heart disease on ECHO. Consider adding BB. 6. HTN: No previous dx. Will start ACEI. Continue lasix. Consider adding BB. Monitor throughout the day. Follow up with cards and ID. Melo
[2019-03-01] MEDS ORDERED: Furosemide 20 MG TAB PO SCH (09:00)
[2019-03-01] MEDS ORDERED: lamoTRIgine 100 MG TAB PO SCH (09:00)
[2019-03-01] MEDS: Bupropion 150 MG XL TAB PO SCH (09:11)
[2019-03-01] MEDS: Potassium Chloride 10 MEQ TAB PO SCH (09:11)
[2019-03-01] MEDS: Furosemide 20 MG TAB PO SCH (09:12)
[2019-03-01] MEDS: lamoTRIgine 100 MG TAB PO SCH (09:12)
[2019-03-01] MEDS: FLUoxetine HCl 20 MG CAP PO SCH (09:12)
[2019-03-01] MEDS: Enoxaparin Sodium 40 MG/0.4 ML SYRINGE SC SCH (09:13)
--- NOTE | 2019-03-01 09:58 | PDOC.CPN ---
- Subjective Date: 03/01/19 Time: 10:02 Interval history: The pt seen and examined. No overnight events. No cardiac complaints. - Objective Allergies/Adverse Reactions: Allergies Allergy/AdvReac Type Severity Reaction Status Date / Time No Known Allergies Allergy Verified 02/25/19 19:55 Visit Medications: Current Medications Albuterol/Ipratropium (Duoneb) 3 ml NEB Q4H PRN PRN Reason: SOB &/or Wheezing Bisacodyl (Dulcolax) 10 mg PO DAILYPRN PRN PRN Reason: Constipation Last Admin: 02/28/19 12:01 Dose: 10 mg Bupropion HCl (Wellbutrin Xl) 300 mg PO DAILY [facility] Last Admin: 03/01/19 09:11 Dose: 300 mg Enoxaparin Sodium (Lovenox) 40 mg SC 09 [facility] Last Admin: 03/01/19 09:13 Dose: 40 mg Fentanyl (Sublimaze) 25 mcg SLOW IVP Q2H PRN PRN Reason: SEVERE Pain (7-10) Fluoxetine HCl (Prozac) 60 mg PO DAILY [facility] Last Admin: 03/01/19 09:12 Dose: 60 mg Furosemide (Lasix) 40 mg PO DAILY [facility] Last Admin: 03/01/19 09:12 Dose: 40 mg Ampicillin Sodium/Sulbactam (Sodium 1.5 gm/ Sodium Chloride) 100 mls @ 200 mls/ hr IVPB Q6H [facility] Lamotrigine (Lamictal) 400 mg PO DAILY [facility] Last Admin: 03/01/19 09:12 Dose: 400 mg Lisinopril (Zestril) 10 mg PO DAILY [facility] Lisinopril (Zestril) 10 mg PO ONE [facility] Miscellaneous Medication (Pharmacy To Dose) 1 each IVPB PRN PRN PRN Reason: Pharmacy to dose Multivitamins/Iron (Centrum Kids Complete/Iron) 1 tab PO DAILY [facility] Polyethylene Glycol (Miralax) 17 gm PO DAILYPRN PRN PRN Reason: Constipation Potassium Chloride (Klor-Con 10) 10 meq PO QAM-WM [facility] Last Admin: 03/01/19 09:11 Dose: 10 meq Sodium Chloride (Flush - Normal Saline) 10 ml IVF Q12HR [facility] Last Admin: 03/01/19 09:14 Dose: 10 ml Sodium Chloride (Flush - Normal Saline) 10 ml IVF PRN PRN PRN Reason: Saline Flush Tramadol HCl (Ultram) 50 mg PO Q6H PRN PRN Reason: MILD TO MODERATE Pain (1-6) Vital Signs & Weight: Vital Signs Temp Pulse Resp BP Pulse Ox 03/01/19 07:35 97.4 F L 78 16 164/72 H 93 L 03/01/19 04:00 98.2 F 79 20 144/66 H 97 Weight 234 lb 14.4 oz - Physical Exam General: alert & oriented x3 Neck: supple neck Cardiac: regular rate and rhythm, S1/S2 Lungs: clear to auscultation Neuro: cranial nerve 2-12 intact Skin: clear Musculoskeletal: normal range of motion - Labs Result Diagrams: 03/01/19 04:17 03/01/19 04:17 Troponin/CKMB Troponin I 0.025 ng/mL (< 0.028) 02/25/19 20:42 - Telemetry Sinus rhythms and dysrhythmias: sinus rhythm - Assessment/Plan Assessment/Plan: 1. Pericaridal Effusion with pre-Tamponade with s/p pericardial window on 2018 - stable with RA; cont. to monitor with strict I&O 2. Pleural effusion - CXR on 03/01/2019 showed small Lt pleural effusion; stable with RA; increased urine output with lasix 40mg qd. 3. Bipolar disorder MAR reviewed * Echo on 02/26/2019 with EF 60-65%, mild LVH, trace MR, mild TR, and mod- severe pleural effusion. * 500ml removed from the pericardium, Preliminary report: Corynebacterium. Pt. seen and eval. by me. I agree with the A/P by the NOTCHING MACHINE OPERATOR. Pt. still has significant edema and right pleural effusion. She says that she is urinating a lot but this is not measured. Continue lasix and check urine output. RRR. decreased BS in right base. 2+ lower extremity edema.
[2019-03-01] MEDS ORDERED: Lisinopril 10 MG TAB PO SCH (10:00)
[2019-03-01] MEDS: Vancomycin HCl 1.5 GM in Sodium Chloride 0.9% 250 ML 300 ML IVPB SCH (10:43)
[2019-03-01] MEDS: Ampicillin/Sulbactam 1.5 GM in Sodium Chloride 0.9% 100 ML IVPB SCH ×3 (12:46→22:12)
[2019-03-01 17:23] LABS: ANA Symphony (Qualitative) Negative (Negative); ANA Symphony (Quantitative) 0.2 Ratio (< 0.7 Negative); EliA RAS New Method **** NEW METHOD ****; Rheumatoid Factor IgA Antibody 1.8 IU/mL (<14 Negative); dsDNA IgG Antibody Less than 0.5 IU/mL (<10 Negative)
[2019-03-01 17:49] LABS: Ref Lab Test Ordered CMV PCR; Reference Lab Name LABCORP
[2019-03-01 17:50] LABS: Ref Lab Test Ordered AERO ID AND SUSC; Reference Lab Name LABCORP
[2019-03-02] MEDS: Ampicillin/Sulbactam 1.5 GM in Sodium Chloride 0.9% 100 ML IVPB SCH ×2 (05:40→11:42)
--- NOTE | 2019-03-02 06:53 | PDOC.FM ---
- Subjective Subjective: Patient reports continued improvement of SOB and was weaned off of all O2 yesterday evening and remained stable on RA overnight. Denies any fever/chills, chest pain. or N/V/D. - Objective MAR Reviewed: Yes Vital Signs & Weight: Vital Signs (12 hours) Temp Pulse Resp BP Pulse Ox 03/02/19 04:00 97.3 F L 75 18 132/61 95 03/01/19 19:15 98.6 F 80 18 144/67 H 96 Weight Weight 106.549 kg Most Recent Monitor Data Heart Rate from ECG 73 NIBP 134/60 NIBP BP-Mean 84 Respiration from ECG 23 SpO2 94 I&O: 02/28/19 03/01/19 03/02/19 06:59 06:59 06:59 Intake Total 1316 1820 200 Output Total 640 25 Balance 676 1795 200 Result Diagrams: 03/01/19 04:17 03/01/19 04:17 Phys Exam - Physical Examination Constitutional: NAD HEENT: moist MMs Neck: supple, full ROM Respiratory: no wheezing, no rales, no rhonchi, clear to auscultation bilateral Cardiovascular: RRR, no significant murmur Musculoskeletal: edema present Neurological: non-focal, moves all 4 limbs Psychiatric: A&O x 3 Dx/Plan (1) Bipolar disorder Code(s): F31.9 - BIPOLAR DISORDER, UNSPECIFIED Status: Chronic (2) Depression Code(s): F32.9 - MAJOR DEPRESSIVE DISORDER, SINGLE EPISODE, UNSPECIFIED Status : Chronic (3) Pericardial effusion without cardiac tamponade Code(s): I31.3 - PERICARDIAL EFFUSION (NONINFLAMMATORY) Status: Acute (4) Pleural effusion Code(s): J90 - PLEURAL EFFUSION, NOT ELSEWHERE CLASSIFIED Status: Acute (5) Shortness of breath Code(s): R06.02 - SHORTNESS OF BREATH Status: Acute (6) Elevated blood pressure reading without diagnosis of hypertension Code(s): R03.0 - ELEVATED BLOOD-PRESSURE READING, W/O DIAGNOSIS OF HTN Status : Acute - Plan Plan: Acute Hypoxemic Respiratory Failure 2/2 to Pericardial Effusion and b/l Pleural Effusions of unknown etiology, resolved - s/p pericardial window on 02/26 & weaned off of supplemental O2 yesterday. - Viral studies including PCR for enterovirus family & fungal cultures still pending. - Pericardial fluid growing suspected corynebacterium which per CV surg is likely a contaminant. Switched to IV Unasyn yesterday. Will touch base with ID today to asses whether or no abx are necessary while waiting for official culture results. - Cytology of fluid noted mostly blood and a few reactive macrophages, histiocytes & mesothelial cells. peripheral smear noted a normocytic, normochromic anemia with a reactive leukocytosis. - AFB, HIV & RPR negative. CRP downtrending as of yesterday. Will check again tomorrow. - Cardiology & CV surg on board, appreciate recs. Nonsustained Vtach - Tele monitor showed patient had 3 runs of non-sustained vtach 3 days ago but none noted since. Patient reports she was asymptomatic at the time. - Cards on board, appreciate recs. Pericardial Effusion -See #1 Pleural Effusion, Bilaterally - Repeat CXR on 02/27 showed a persistent small L-sided pleural effusion & patient still has significant LE edema. Will continue 40mg PO lasix per cards recs. Bipolar disorder with Depression -Continue home medication regimen. normocytic normochromic anemia - Ferritin elevated at 380 which is inconsistent with [facility]. Will continue multivitamin & encourage outpatient w/u of anemia. Elevated BP w/o diganosis of HTN - BPs ranged from 160-130 systolic s/p 10mg lisinopril yesterday. Will consider adding low dose BB therapy today. Dispo: Anticipate possible d/c home with close f/u with PCP & cardiology pending ID recs for abx therapy.
[2019-03-02] MEDS: Enoxaparin Sodium 40 MG/0.4 ML SYRINGE SC SCH (08:00)
[2019-03-02] MEDS: lamoTRIgine 100 MG TAB PO SCH (08:01)
[2019-03-02] MEDS: Bisacodyl 5 MG TAB PO PRN (08:02)
[2019-03-02] MEDS: Bupropion 150 MG XL TAB PO SCH (08:03)
[2019-03-02] MEDS: Potassium Chloride 10 MEQ TAB PO SCH (08:03)
[2019-03-02] MEDS: FLUoxetine HCl 20 MG CAP PO SCH (08:04)
[2019-03-02] MEDS: Furosemide 20 MG TAB PO SCH (08:04)
[2019-03-02] MEDS ORDERED: Lisinopril 10 MG TAB PO SCH (09:00)
[2019-03-02] MEDS ORDERED: Multivitamins CHEW w/Iron Tablet PO SCH (09:00)
[2019-03-02 11:40] VITALS: TEMP 98.6
--- NOTE | 2019-03-02 12:49 | PDOC.CPN ---
- Subjective Date: 03/02/19 Time: 12:51 Interval history: The pt seen and examined. No overnight events. No cardiac complaints. - Objective Allergies/Adverse Reactions: Allergies Allergy/AdvReac Type Severity Reaction Status Date / Time No Known Allergies Allergy Verified 02/25/19 19:55 Visit Medications: Current Medications Albuterol/Ipratropium (Duoneb) 3 ml NEB Q4H PRN PRN Reason: SOB &/or Wheezing Bisacodyl (Dulcolax) 10 mg PO DAILYPRN PRN PRN Reason: Constipation Last Admin: 03/02/19 08:02 Dose: 10 mg Bupropion HCl (Wellbutrin Xl) 300 mg PO DAILY [facility] Last Admin: 03/02/19 08:03 Dose: 300 mg Enoxaparin Sodium (Lovenox) 40 mg SC 09 [facility] Last Admin: 03/02/19 08:00 Dose: 40 mg Fentanyl (Sublimaze) 25 mcg SLOW IVP Q2H PRN PRN Reason: SEVERE Pain (7-10) Fluoxetine HCl (Prozac) 60 mg PO DAILY [facility] Last Admin: 03/02/19 08:04 Dose: 60 mg Furosemide (Lasix) 40 mg PO DAILY [facility] Last Admin: 03/02/19 08:04 Dose: 40 mg Lamotrigine (Lamictal) 400 mg PO DAILY [facility] Last Admin: 03/02/19 08:01 Dose: 400 mg Lisinopril (Zestril) 10 mg PO DAILY [facility] Last Admin: 03/02/19 08:01 Dose: 10 mg Multivitamins/Iron (Centrum Kids Complete/Iron) 1 tab PO DAILY [facility] Last Admin: 03/02/19 08:03 Dose: 1 tab Polyethylene Glycol (Miralax) 17 gm PO DAILYPRN PRN PRN Reason: Constipation Potassium Chloride (Klor-Con 10) 10 meq PO QAM-WM [facility] Last Admin: 03/02/19 08:03 Dose: 10 meq Sodium Chloride (Flush - Normal Saline) 10 ml IVF Q12HR [facility] Last Admin: 03/02/19 08:04 Dose: 10 ml Sodium Chloride (Flush - Normal Saline) 10 ml IVF PRN PRN PRN Reason: Saline Flush Tramadol HCl (Ultram) 50 mg PO Q6H PRN PRN Reason: MILD TO MODERATE Pain (1-6) Vital Signs & Weight: Vital Signs Temp Pulse Resp BP Pulse Ox 03/02/19 11:33 98.6 F 76 18 140/67 94 L 03/02/19 08:02 93 L 03/02/19 07:09 98.9 F 78 21 H 158/67 H 93 L 03/02/19 04:00 97.3 F L 75 18 132/61 95 Weight 234 lb 14.4 oz - Physical Exam General: alert & oriented x3 HEENT: mucus membranes moist Neck: supple neck Cardiac: regular rate and rhythm, S1/S2 Lungs: decreased breath sounds Neuro: cranial nerve 2-12 intact Abdomen: unremarkable Skin: clear Musculoskeletal: decreased range of motion - Labs Result Diagrams: 03/01/19 04:17 03/01/19 04:17 Troponin/CKMB Troponin I 0.025 ng/mL (< 0.028) 02/25/19 20:42 - Telemetry Sinus rhythms and dysrhythmias: sinus rhythm - Assessment/Plan Assessment/Plan: 1. Pericaridal Effusion with pre-Tamponade with s/p pericardial window on 2018 - stable with RA; cont. to monitor with strict I&O 2. Pleural effusion - CXR on 03/01/2019 showed small Lt pleural effusion; stable with RA; increased urine output with lasix 40mg qd. 3. Bipolar disorder 4. BLE edema - Strongly recommend to cut salt intake, raise her BLE while resting, wear compression stockings, and regular exercise. MAR reviewed * Echo on 02/26/2019 with EF 60-65%, mild LVH, trace MR, mild TR, and mod- severe pleural effusion. * 500ml removed from the pericardium, Preliminary report: Corynebacterium. Pt. seen and eval. by me. i agree with the A/P by the [employer]. She is still edematous and will need diuretics. Chest: decreased bases. RRR. 2+ LE edema. s/p pericardial effusion with drainage. f/u with primary Md and see cardiology as needed. Repeat echo in 1-2 months.
[2019-03-02 15:49] VITALS: BP 143/68
== END 2019-03-02 16:53 | disposition home or self-care (01) | DRG 270 ==
LOC: ERS 14:31 → IMCU/EMU 18:21 → 2NO 02-27 17:58
PROVIDERS: ADMIT Family Medicine; ATTEND Family Medicine
PROC: 0W9D00Z Drainage of Pericardial Cavity with Drainage Device, Open Approach (ICD-10-PCS; principal; 2019-02-26)
PROC: 02BN0ZX Excision of Pericardium, Open Approach, Diagnostic (ICD-10-PCS; 2019-02-26)
DX: I31.3 Pericardial effusion (noninflammatory) (principal); J96.01 Acute respiratory failure with hypoxia; J90 Pleural effusion, not elsewhere classified; Z68.42 Body mass index [BMI] 45.0-49.9, adult; I47.2 Ventricular tachycardia; F31.9 Bipolar disorder, unspecified; I10 Essential (primary) hypertension; E66.9 Obesity, unspecified; F41.9 Anxiety disorder, unspecified; R03.0 Elevated blood-pressure reading, without diagnosis of hypertension; D64.9 Anemia, unspecified; Z90.49 Acquired absence of other specified parts of digestive tract; Z79.899 Other long term (current) drug therapy; Z90.710 Acquired absence of both cervix and uterus; Z87.891 Personal history of nicotine dependence
CPT/HCPCS: 36415; 71045; 71046; 71275; 80053; 80202; 82550; 82728; 82805; 83520; 83690; 83880; 84443; 84484; 85025; 85060; 86038; 86140; 86225; 86780; 87070; 87102; 87116; 87205; 87206; 87389; 87498; 88112; 88305; 89051; 93005; 93306; 94760; 96361; 96374; J0295; J1100; J1650; J1940; J2001; J2405; J2704; J3010; J3370; J3490; J7050; Q9966

== ENCOUNTER 2019-03-24 08:23 | Outpatient (CLI) | payer MEDICARE ==
--- NOTE | 2019-03-24 09:26 | MMO ---
Bilateral MAMMO Bilat Screen [facility]. CLINICAL HISTORY: Patient is 63 years old and is seen for screening. The patient has the following family history of breast cancer: mother, malignant (generic). The patient has no personal history of cancer. VIEWS: The views performed were: bilateral craniocaudal with tomosynthesis and bilateral mediolateral oblique with tomosynthesis. FILMS COMPARED: The present examination has been compared to a prior imaging study performed at [facility] on 11/26/2017. This study has been interpreted with the assistance of computer-aided detection. MAMMOGRAM FINDINGS: There are scattered fibroglandular densities. There are stable benign appearing calcifications seen in both breasts. There are no suspicious masses, suspicious calcifications, or new areas of architectural distortion. IMPRESSION: THERE IS NO MAMMOGRAPHIC EVIDENCE OF MALIGNANCY. A ROUTINE FOLLOW-UP MAMMOGRAM IN 1 YEAR IS RECOMMENDED. THE RESULTS OF THIS EXAM WERE SENT TO THE PATIENT. ACR BI-RADS Category 2 - Benign finding MAMMOGRAPHY NOTE: 1. A negative mammogram report should not delay a biopsy if a dominant of clinically suspicious mass is present. 2. Approximately 10% to 15% of breast cancers are not detected by mammography. 3. Adenosis and dense breasts may obscure an underlying neoplasm. Reported by: ELLIE HOLLAND MD Electonically Signed: [id number]
== END 2019-03-24 08:24 | disposition home or self-care (01) ==
LOC: BICMAMMO 08:23
PROVIDERS: ATTEND Family Medicine
DX: Z12.31 Encounter for screening mammogram for malignant neoplasm of breast (principal); Z80.3 Family history of malignant neoplasm of breast
CPT/HCPCS: 77063; 77067

== ENCOUNTER 2019-04-16 20:02 | Emergency (ER) | payer MEDICARE ==
[2019-04-16] MEDS ORDERED: Lidocaine 1% (PF) 30 ML VIAL ONE (20:21)
[2019-04-16] MEDS ORDERED: Adacel (T-DAP) 0.5 ML SYRINGE ONE (20:30)
--- NOTE | 2019-04-16 20:46 | RAD ---
Exam: XR Hand Rt 3 View STANDARD HISTORY: Injury to right hand after tripping on a curb. Trauma. COMPARISON: None FINDINGS: No acute fracture, dislocation, or other acute osseous abnormality is identified. IMPRESSION: No acute osseous abnormality is identified.
[2019-04-16] MEDS ORDERED: Ketorolac Tromethamine 30 MG/ML VIAL ONE (21:21)
== END 2019-04-16 21:37 | disposition home or self-care (01) ==
LOC: ERS 20:02
DX: S61.011A Laceration without foreign body of right thumb without damage to nail, initial encounter (principal); S50.811A Abrasion of right forearm, initial encounter; I10 Essential (primary) hypertension; F31.9 Bipolar disorder, unspecified; F41.9 Anxiety disorder, unspecified; Z79.899 Other long term (current) drug therapy; W17.89XA Other fall from one level to another, initial encounter
CPT/HCPCS: 12001; 90471; 90715; 96372; J1885; J2001

== ENCOUNTER 2020-05-21 09:01 | Outpatient (CLI) | payer MEDICARE ==
--- NOTE | 2020-05-21 10:14 | MMO ---
Bilateral MAMMO Bilat Screen [facility]. CLINICAL HISTORY: Patient is 65 years old and is seen for screening. The patient has the following family history of breast cancer: mother, malignant (generic). The patient has no personal history of cancer. VIEWS: The views performed were: bilateral craniocaudal with tomosynthesis and bilateral mediolateral oblique with tomosynthesis. FILMS COMPARED: The present examination has been compared to prior imaging studies performed at [facility] on 11/26/2017 and 03/24/2019. This study has been interpreted with the assistance of computer-aided detection. MAMMOGRAM FINDINGS: There are scattered fibroglandular densities. There are no suspicious masses, suspicious calcifications, or new areas of architectural distortion. IMPRESSION: THERE IS NO MAMMOGRAPHIC EVIDENCE OF MALIGNANCY. A ROUTINE FOLLOW-UP MAMMOGRAM IN 1 YEAR IS RECOMMENDED. THE RESULTS OF THIS EXAM WERE SENT TO THE PATIENT. ACR BI-RADS Category 1 - Negative MAMMOGRAPHY NOTE: 1. A negative mammogram report should not delay a biopsy if a dominant of clinically suspicious mass is present. 2. Approximately 10% to 15% of breast cancers are not detected by mammography. 3. Adenosis and dense breasts may obscure an underlying neoplasm. Reported by: KATHARINA MORIN MD Electonically Signed: [id number]
--- NOTE | 2020-05-21 12:26 | BD ---
DEXA BONE MINERAL DENSITY STUDY: HISTORY: Menopause. COMPARISON: None. FINDINGS: Lumbar Spine: BMD (g/cm2) L1 0.872 T-Score: -1.1 0.4 L2 0.905 T-Score: -1.1 0.5 L3 1.035 T-Score: -0.4 1.2 L4 1.124 T-Score: 0.6 2.3 L1-L4 0.992 T-Score: -0.5 1.1 Femoral Neck: 0.611 T-Score: -2.1 -0.7 Total Femur: 0.877 T-Score: -0.5 0.6 WHO classification osteopenia. Ten-year fracture risk: Major osteoporotic fracture 9.8% and hip fracture 1.4%. Impression: Osteopenia with fracture risk as above. POS: HEIDI
== END 2020-05-21 09:02 | disposition home or self-care (01) ==
LOC: BICMAMMO 09:01
PROVIDERS: ATTEND Family Medicine
DX: Z12.31 Encounter for screening mammogram for malignant neoplasm of breast (principal); Z13.820 Encounter for screening for osteoporosis; Z78.0 Asymptomatic menopausal state; M85.89 Other specified disorders of bone density and structure, multiple sites; Z80.3 Family history of malignant neoplasm of breast
CPT/HCPCS: 77063; 77067; 77080

== ENCOUNTER 2021-04-26 19:53 | Emergency (ER) | payer MEDICARE ==
[2021-04-26] MEDS ORDERED: Aspirin 325 MG TAB ONE (20:25)
== END 2021-04-26 22:51 | disposition home or self-care (01) ==
LOC: ERS 19:53
DX: R60.0 Localized edema (principal); I10 Essential (primary) hypertension; Z79.899 Other long term (current) drug therapy

== ENCOUNTER 2021-05-19 14:37 | Outpatient (CLI) | payer MEDICARE | END 2021-05-19 14:38 | disposition home or self-care (01) | LOC: BICULT 14:37 | PROVIDERS: ATTEND Internal Medicine Nephrology | DX: N18.30 Chronic kidney disease, stage 3 unspecified (principal) | CPT/HCPCS: 76770 ==

== ENCOUNTER 2022-07-26 13:12 | Emergency (ER) | payer MEDICARE ==
[2022-07-26] MEDS ORDERED: Nitroglycerin 2% Ointment 1 INCH/1 GM Packet ONE (17:13)
[2022-07-26] MEDS ORDERED: Furosemide 40 MG/4 ML VIAL ONE (17:13)
[2022-07-26] MEDS ORDERED: Aspirin Chewable 81 MG TAB ONE (17:13)
[2022-07-26 17:25] LABS: #Eosinphils 0.3 thou/uL (0.0-0.7); #Lymphocytes 1.8 thou/uL (1.20-3.40); #Monocytes 0.5 thou/uL (0.11-0.59); #Neutrophils 4.5 thou/uL (1.40-6.50); %Basophils 0.4 % (0.0-1.0); %Eosinophils 4.4 % (0.0-10.0); %Lymphocytes 25.1 % (21.0-51.0); %Monocytes 7.3 % (0.0-10.0); %Neutrophils 62.8 % (42.0-75.0); Hemoglobin 12.7 g/dL (12.0-16.0); Mean Corpuscular HGB CONC 32.6 g/dL (32.0-36.0); Mean Corpuscular Hemoglobin 31.4 pg (27.0-31.0); Mean Corpuscular Volume 96.2 fl (78.0-98.0); Mean Platelet Volume 7.5 fL (7.4-10.4); Platelet Count 268 10x3/uL (130-400); RBC Distribution Width 12.4 % (11.5-14.5); Red Blood Cell (RBC) Count 4.05 mill/uL (4.20-5.40); White Blood Cell (WBC) Count 7.2 10x3/uL (4.8-10.8)
[2022-07-26 17:55] LABS: ALT (SGPT) 12 U/L (8-55); AST (SGOT) 17 U/L (5-34); Albumin 3.8 g/dL (3.4-4.8); Alkaline Phosphatase 72 U/L (40-110); Anion Gap 12 mmol/L (10-20); BUN (Urea Nitrogen) 14 mg/dL (9.8-20.1); Bilirubin, Total 0.5 mg/dL (0.2-1.2); CK (CPK) 106 U/L (29-168); Calc. Creatinine Clearance 0 mL/min (70-130); Calcium 9.5 mg/dL (7.8-10.44); Carbon Dioxide 27 mmol/L (23-31); Chloride 103 mmol/L (98-107); Estimated GFR 63; Globulin 2.9 g/dL (2.4-3.5); Glucose 85 mg/dL (80-115); Lipase 14 U/L (8-78); Potassium 3.8 mmol/L (3.5-5.1); Protein, Total 6.7 g/dL (5.8-8.1); Sodium 138 mmol/L (136-145)
== END 2022-07-26 18:30 | disposition home or self-care (01) ==
LOC: ERS 13:12
DX: M54.50 Low back pain, unspecified (principal); I10 Essential (primary) hypertension; R60.9 Edema, unspecified
CPT/HCPCS: 36415; 72131; 72170; 80053; 82550; 83690; 83880; 84484; 85025; 93005; 96374; J1940

== ENCOUNTER 2023-04-17 15:25 | Emergency (ER) | payer MEDICARE | END 2023-04-17 17:13 | disposition home or self-care (01) | LOC: ERS 15:25 | DX: S42.024A Nondisplaced fracture of shaft of right clavicle, initial encounter for closed fracture (principal); I10 Essential (primary) hypertension; Z87.891 Personal history of nicotine dependence; Z79.01 Long term (current) use of anticoagulants; Z79.899 Other long term (current) drug therapy; W01.0XXA Fall on same level from slipping, tripping and stumbling without subsequent striking against object, initial encounter; Y92.511 Restaurant or cafe as the place of occurrence of the external cause ==

== ENCOUNTER 2023-05-09 12:17 | Emergency (ER) | payer MEDICARE ==
[2023-05-09 13:05] LABS: #Eosinphils 0.3 thou/uL (0.0-0.7); #Monocytes 0.5 thou/uL (0.11-0.59); #Neutrophils 7.9 thou/uL (1.40-6.50); %Basophils 0.3 % (0.0-1.0); %Eosinophils 2.5 % (0.0-10.0); %Lymphocytes 11.6 % (21.0-51.0); %Monocytes 4.9 % (0.0-10.0); %Neutrophils 80.5 % (42.0-75.0); Hematocrit 38.4 % (36.0-47.0); Hemoglobin 12.2 g/dL (12.0-16.0); Mean Corpuscular HGB CONC 31.8 g/dL (32.0-36.0); Mean Corpuscular Hemoglobin 30.2 pg (27.0-31.0); Mean Platelet Volume 9.9 fL (7.4-10.4); Platelet Count 300 10x3/uL (130-400); RBC Distribution Width 14.6 % (11.5-14.5); Red Blood Cell (RBC) Count 4.04 mill/uL (4.20-5.40); White Blood Cell (WBC) Count 9.8 10x3/uL (4.8-10.8)
[2023-05-09] MEDS ORDERED: Meclizine HCl 25 MG TAB ONE (13:13)
[2023-05-09 13:29] LABS: ALT (SGPT) 9 U/L (8-55); AST (SGOT) 14 U/L (5-34); Albumin 4.2 g/dL (3.4-4.8); Alkaline Phosphatase 95 U/L (40-110); Anion Gap 16 mmol/L (10-20); BUN (Urea Nitrogen) 21 mg/dL (9.8-20.1); Bilirubin, Total 0.6 mg/dL (0.2-1.2); Calc. Creatinine Clearance 0 mL/min (70-130); Calcium 9.6 mg/dL (7.8-10.44); Carbon Dioxide 26 mmol/L (23-31); Chloride 101 mmol/L (98-107); Estimated GFR 47; Globulin 3.2 g/dL (2.4-3.5); Glucose 118 mg/dL (80-115); Lipase 18 U/L (8-78); Potassium 4.8 mmol/L (3.5-5.1); Protein, Total 7.4 g/dL (5.8-8.1); Sodium 138 mmol/L (136-145)
[2023-05-09 13:31] LABS: Troponin I Less than 0.010 ng/mL (< 0.028)
== END 2023-05-09 14:23 | disposition home or self-care (01) ==
LOC: ERS 12:17
DX: R42 Dizziness and giddiness (principal); I10 Essential (primary) hypertension; F32.9 Major depressive disorder, single episode, unspecified; R29.700 NIHSS score 0; Z87.891 Personal history of nicotine dependence; Z79.899 Other long term (current) drug therapy
CPT/HCPCS: 36415; 71045; 80053; 83690; 84484; 85025; 93005

== ENCOUNTER 2023-10-27 13:49 | Outpatient (CLI) | payer MEDICARE, OTHER | END 2023-10-27 13:50 | disposition home or self-care (01) | LOC: BICMAMMO 13:49 | PROVIDERS: ATTEND Family Medicine | DX: Z12.31 Encounter for screening mammogram for malignant neoplasm of breast (principal); Z80.3 Family history of malignant neoplasm of breast | CPT/HCPCS: 77063; 77067 ==

== ENCOUNTER 2025-03-20 16:35 | Inpatient (IN) | payer MEDICARE ==
[~2025-03-20 16:35] MED LIST changes: -ISOVUE-370 76%-LOCM 1 ML ONE; +Iopamidol-370 76% 500 ML MDV (1 ML CHARGE) ONE
[2025-03-20] MEDS ORDERED: Magnesium 2 GM/50 ML BAG (IN WATER) ONE (16:48)
[2025-03-20] MEDS ORDERED: Albuterol 2.5 MG (0.5 mL) NEB ONE (17:11)
[2025-03-20] MEDS ORDERED: Albuterol 2.5 MG (3 mL) NEB ONE (17:15)
[2025-03-20 17:16] LABS: Actual Bicarbonate (HCO3a) 21.4 mEq/L (22-28); Analyzer IN Cardio ER; Base Excess (BEa) -1.1 mEq/L (-2.0 to +3.0); CO2 Tension 28.3 mmHg (35.0-45.0); Calcium, Ionized (arterial) 1.16 mmol/L (1.12-1.30); Hematocrit-ABG 30 % (36.0-47.0); Hemoglobin (Hb) 10.1 g/dL (12.0-16.0); O2 Tension (PaO2), arterial 76.0 mmHg (> 80.0); Potassium - ABG Lab 3.31 mmol/L (3.70-5.30); pH, Arterial 7.497 (7.35-7.45)
[2025-03-20 17:19] LABS: #Basophils 0.04 10x3/uL (0.0-0.2); #Eosinophils 0.03 10x3/uL (0.0-0.7); #Monocytes 0.68 10x3/uL (0.11-0.59); #Neutrophils 18.74 10x3/uL (1.40-6.50); %Basophils 0.2 % (0.0-1.0); %Eosinophils 0.1 % (0.0-10.0); %Lymphocytes 3.0 % (21.0-51.0); %Monocytes 3.3 % (0.0-10.0); %Neutrophils 91.7 % (42.0-75.0); Hematocrit 28.2 % (36.0-47.0); Hemoglobin 9.3 g/dL (12.0-16.0); Mean Corpuscular Hemoglobin 28.3 pg (27.0-31.0); Mean Corpuscular Volume 85.7 fL (78.0-98.0); Platelet Count 417 10x3/uL (130-400); Red Blood Cell (RBC) Count 3.29 mill/uL (4.20-5.40); White Blood Cell (WBC) Count 20.45 10x3/uL (4.8-10.8)
[2025-03-20 17:36] LABS: ALT (SGPT) 64 U/L (Less than 34); AST (SGOT) 127 U/L (11-34); Albumin 2.3 g/dL (3.1-4.5); Alkaline Phosphatase 185 U/L (40-110); Anion Gap 18 mmol/L (10-20); BUN (Urea Nitrogen) 28 mg/dL (9.8-20.1); Bilirubin, Total 1.2 mg/dL (0.3-1.2); Calc. Creatinine Clearance 0 mL/min (70-130); Calcium 9.0 mg/dL (7.8-10.44); Carbon Dioxide 23 mmol/L (23-31); Chloride 90 mmol/L (98-107); Globulin 4.0 g/dL (2.4-3.5); Glucose 115 mg/dL (80-115); Potassium 3.3 mmol/L (3.5-5.1); Sodium 128 mmol/L (136-145)
[2025-03-20] MEDS ORDERED: Cefepime 2 GM VIAL ONE (19:19)
[2025-03-20] MEDS ORDERED: LevoFLOXacin 750 mg/D5W 150 ml Premix Bag ONE (19:43)
[2025-03-20] MEDS ORDERED: Vancomycin (BATCH) 2.5 GM in Premix 1 BAG IVPB SCH (20:00)
[2025-03-20] MEDS ORDERED: Ondansetron PF 4 MG/2 ML Vial IVP PRN (21:36)
[2025-03-20] MEDS ORDERED: Acetaminophen 325 MG TAB PO PRN (21:36)
[2025-03-20] MEDS ORDERED: NS 0.9% w/ 20 MEQ KCL 1,000 ML/1,000 ML BAG IV SCH (22:15)
[2025-03-20] MEDS ORDERED: Furosemide 40 MG (4 mL) VIAL SLOW IVP SCH (22:15)
[2025-03-20] MEDS ORDERED: Electrolyte Replacement Protocol 1 EACH FS SCH (22:15)
[2025-03-20] MEDS: VANCOMYCIN 2 GRAM/400 ML Premix BAG IVPB SCH (22:43)
[2025-03-20] MEDS: Azithromycin 500 MG in Sodium Chloride 0.9% 250 ML 250 ML IVPB SCH (22:58)
[2025-03-20] MEDS: Potassium Chloride 20 MEQ in Premix 1 BAG IVPB SCH (23:07)
[2025-03-21 01:28] LABS: Sodium 122 mmol/L (136-145)
[2025-03-21 03:32] LABS: Legionella Urinary Ag Negative (Negative); Strep pneumo Urine Ag NEGATIVE (NEGATIVE)
[2025-03-21 04:14] LABS: #Basophils 0.03 10x3/uL (0.0-0.2); #Eosinophils 0.03 10x3/uL (0.0-0.7); #Monocytes 0.62 10x3/uL (0.11-0.59); #Neutrophils 16.73 10x3/uL (1.40-6.50); %Basophils 0.2 % (0.0-1.0); %Eosinophils 0.2 % (0.0-10.0); %Lymphocytes 3.2 % (21.0-51.0); %Monocytes 3.4 % (0.0-10.0); %Neutrophils 91.3 % (42.0-75.0); Hematocrit 24.1 % (36.0-47.0); Hemoglobin 8.1 g/dL (12.0-16.0); Mean Corpuscular Hemoglobin 28.9 pg (27.0-31.0); Mean Corpuscular Volume 86.1 fL (78.0-98.0); Platelet Count 364 10x3/uL (130-400); Red Blood Cell (RBC) Count 2.80 mill/uL (4.20-5.40); White Blood Cell (WBC) Count 18.31 10x3/uL (4.8-10.8)
[2025-03-21 04:35] LABS: Vancomycin, Random 20.6 ug/mL (See Comment)
[2025-03-21 04:39] LABS: ALT (SGPT) 50 U/L (Less than 34); AST (SGOT) 84 U/L (11-34); Albumin 2.0 g/dL (3.1-4.5); Alkaline Phosphatase 149 U/L (40-110); Anion Gap 11 mmol/L (10-20); BUN (Urea Nitrogen) 26 mg/dL (9.8-20.1); Bilirubin, Total 0.8 mg/dL (0.3-1.2); Calc. Creatinine Clearance 75 mL/min (70-130); Calcium 8.3 mg/dL (7.8-10.44); Carbon Dioxide 20 mmol/L (23-31); Chloride 96 mmol/L (98-107); Globulin 3.5 g/dL (2.4-3.5); Glucose 103 mg/dL (80-115); Magnesium 2.3 mg/dL (1.6-2.6); Potassium 3.4 mmol/L (3.5-5.1); Sodium 124 mmol/L (136-145)
[2025-03-21] MEDS: Mupirocin 1 GM TUBE TP SCH (08:29)
[2025-03-21] MEDS: Enoxaparin 40 MG (0.4 mL) SYRINGE SC SCH (08:29)
[2025-03-21] MEDS: Pantoprazole 40 MG VIAL IVP SCH (08:29)
[2025-03-21] MEDS: FLU (Fluad Triv) 25-26 (65UP)PF 45 MCG/0.5 ML Syringe IM ONE (08:29)
[2025-03-21 09:18] LABS: Potassium 3.4 mmol/L (3.5-5.1)
[2025-03-21] MEDS: Potassium Chloride 20 MEQ in Premix 1 BAG IVPB SCH (10:15)
[2025-03-21 17:56] LABS: Potassium 3.8 mmol/L (3.5-5.1)
[2025-03-21] MEDS ORDERED: Vancomycin 1.25 GM / NS 250 ML VIAL-2-BAG IVPB SCH (21:00)
[2025-03-21] MEDS: Vancomycin 1 GM Premix Bag IVPB SCH (21:34)
[2025-03-22 03:30] LABS: #Basophils Less than 0.03 10x3/uL (0.0-0.2); #Eosinophils 0.23 10x3/uL (0.0-0.7); #Monocytes 0.63 10x3/uL (0.11-0.59); #Neutrophils 13.18 10x3/uL (1.40-6.50); %Basophils 0.1 % (0.0-1.0); %Eosinophils 1.5 % (0.0-10.0); %Lymphocytes 4.7 % (21.0-51.0); %Monocytes 4.2 % (0.0-10.0); %Neutrophils 87.1 % (42.0-75.0); Hematocrit 26.9 % (36.0-47.0); Hemoglobin 8.6 g/dL (12.0-16.0); Mean Corpuscular Hemoglobin 28.5 pg (27.0-31.0); Mean Corpuscular Volume 89.1 fL (78.0-98.0); Platelet Count 380 10x3/uL (130-400); Red Blood Cell (RBC) Count 3.02 mill/uL (4.20-5.40); White Blood Cell (WBC) Count 15.13 10x3/uL (4.8-10.8)
[2025-03-22 03:47] LABS: Anion Gap 13 mmol/L (10-20); BUN (Urea Nitrogen) 14 mg/dL (9.8-20.1); Calc. Creatinine Clearance 123 mL/min (70-130); Calcium 8.4 mg/dL (7.8-10.44); Carbon Dioxide 20 mmol/L (23-31); Chloride 104 mmol/L (98-107); Glucose 100 mg/dL (80-115); Potassium 3.9 mmol/L (3.5-5.1); Sodium 133 mmol/L (136-145)
[2025-03-22 03:49] LABS: Vancomycin, Random 16.2 ug/mL (See Comment)
[2025-03-22] MEDS: Vancomycin 1 GM Premix Bag IVPB SCH ×2 (09:52→21:20)
[2025-03-22] MEDS: dilTIAZem 25 MG/5 ML VIAL SLOW IVP SCH (09:53)
[2025-03-22] MEDS: Diltiazem HCl/D5W 125 MG in Premix 1 BAG IVPB SCH (10:29)
[2025-03-22] MEDS ORDERED: Vancomycin 1.5 GM / NS 500ML VIAL-2-BAG IVPB SCH (21:00)
[2025-03-23 07:29] LABS: #Basophils 0.04 10x3/uL (0.0-0.2); #Eosinophils 0.28 10x3/uL (0.0-0.7); #Monocytes 0.70 10x3/uL (0.11-0.59); #Neutrophils 10.75 10x3/uL (1.40-6.50); %Basophils 0.3 % (0.0-1.0); %Eosinophils 2.1 % (0.0-10.0); %Lymphocytes 6.7 % (21.0-51.0); %Monocytes 5.3 % (0.0-10.0); %Neutrophils 81.8 % (42.0-75.0); Hematocrit 28.3 % (36.0-47.0); Hemoglobin 9.0 g/dL (12.0-16.0); Mean Corpuscular Hemoglobin 28.4 pg (27.0-31.0); Mean Corpuscular Volume 89.3 fL (78.0-98.0); Platelet Count 479 10x3/uL (130-400); Red Blood Cell (RBC) Count 3.17 mill/uL (4.20-5.40); White Blood Cell (WBC) Count 13.15 10x3/uL (4.8-10.8)
[2025-03-23 08:01] LABS: Vancomycin, Random 19.1 ug/mL (See Comment)
[2025-03-23 08:02] LABS: Anion Gap 11 mmol/L (10-20); BUN (Urea Nitrogen) 12 mg/dL (9.8-20.1); Calc. Creatinine Clearance 140 mL/min (70-130); Calcium 8.5 mg/dL (7.8-10.44); Carbon Dioxide 22 mmol/L (23-31); Chloride 105 mmol/L (98-107); Glucose 127 mg/dL (80-115); Potassium 3.7 mmol/L (3.5-5.1); Sodium 134 mmol/L (136-145)
[2025-03-23] MEDS: VANCOMYCIN 1.75 GM/350 ML Premix BAG IVPB SCH (09:27)
[2025-03-24 07:07] LABS: Hematocrit 28.0 % (36.0-47.0); Hemoglobin 8.9 g/dL (12.0-16.0); Mean Corpuscular Hemoglobin 27.9 pg (27.0-31.0); Mean Corpuscular Volume 87.8 fL (78.0-98.0); Platelet Count 551 10x3/uL (130-400); Red Blood Cell (RBC) Count 3.19 mill/uL (4.20-5.40); White Blood Cell (WBC) Count 14.98 10x3/uL (4.8-10.8)
[2025-03-24 07:21] LABS: Vancomycin, Random 20.2 ug/mL (See Comment)
[2025-03-24 08:02] LABS: Anion Gap 10 mmol/L (10-20); BUN (Urea Nitrogen) 10 mg/dL (9.8-20.1); Calc. Creatinine Clearance 134 mL/min (70-130); Calcium 8.7 mg/dL (7.8-10.44); Carbon Dioxide 22 mmol/L (23-31); Chloride 107 mmol/L (98-107); Glucose 106 mg/dL (80-115); Potassium 3.6 mmol/L (3.5-5.1); Sodium 135 mmol/L (136-145)
[2025-03-24] MEDS: Potassium Bicarbonate/Cit Ac 20 MEQ TAB PO SCH (08:33)
[2025-03-24 08:36] LABS: Anisocytosis MODERATE=16-30 cells HPF (0-5); Macrocytosis SLIGHT = 6-15 cells HPF (0-5); Platelet Adequacy Comment Platelets Increased; Polychromasia SLIGHT = 2-3 cells HPF (0-2); RBC Morphology Within Normal Limits
[2025-03-25 04:54] LABS: Vancomycin, Random 15.9 ug/mL (See Comment)
[2025-03-25 07:27] VITALS: BMI 49.3
[2025-03-26 05:21] LABS: #Basophils 0.04 10x3/uL (0.0-0.2); #Eosinophils 0.20 10x3/uL (0.0-0.7); #Monocytes 0.62 10x3/uL (0.11-0.59); #Neutrophils 9.03 10x3/uL (1.40-6.50); %Basophils 0.3 % (0.0-1.0); %Eosinophils 1.7 % (0.0-10.0); %Lymphocytes 10.0 % (21.0-51.0); %Monocytes 5.3 % (0.0-10.0); %Neutrophils 78.0 % (42.0-75.0); Hematocrit 29.9 % (36.0-47.0); Hemoglobin 9.2 g/dL (12.0-16.0); Mean Corpuscular Hemoglobin 28.0 pg (27.0-31.0); Mean Corpuscular Volume 91.2 fL (78.0-98.0); Platelet Count 678 10x3/uL (130-400); Red Blood Cell (RBC) Count 3.28 mill/uL (4.20-5.40); White Blood Cell (WBC) Count 11.59 10x3/uL (4.8-10.8)
[2025-03-26 05:41] LABS: ALT (SGPT) 28 U/L (Less than 34); AST (SGOT) 33 U/L (11-34); Albumin 2.1 g/dL (3.1-4.5); Alkaline Phosphatase 107 U/L (40-110); Anion Gap 13 mmol/L (10-20); BUN (Urea Nitrogen) 10 mg/dL (9.8-20.1); Bilirubin, Total 0.6 mg/dL (0.3-1.2); Calc. Creatinine Clearance 162 mL/min (70-130); Calcium 8.7 mg/dL (7.8-10.44); Carbon Dioxide 21 mmol/L (23-31); Chloride 110 mmol/L (98-107); Globulin 3.8 g/dL (2.4-3.5); Glucose 99 mg/dL (80-115); Potassium 3.7 mmol/L (3.5-5.1); Sodium 140 mmol/L (136-145)
[2025-03-26 22:42] VITALS: BMI 49.4
[2025-03-26] MEDS: Activase 2 MG VIAL CATH SCH (23:44)
[2025-03-27 04:26] LABS: #Basophils Less than 0.03 10x3/uL (0.0-0.2); #Eosinophils 0.16 10x3/uL (0.0-0.7); #Monocytes 0.52 10x3/uL (0.11-0.59); #Neutrophils 8.02 10x3/uL (1.40-6.50); %Basophils 0.2 % (0.0-1.0); %Eosinophils 1.6 % (0.0-10.0); %Lymphocytes 10.6 % (21.0-51.0); %Monocytes 5.2 % (0.0-10.0); %Neutrophils 79.5 % (42.0-75.0); Hematocrit 27.9 % (36.0-47.0); Hemoglobin 8.6 g/dL (12.0-16.0); Mean Corpuscular Hemoglobin 27.9 pg (27.0-31.0); Mean Corpuscular Volume 90.6 fL (78.0-98.0); Platelet Count 667 10x3/uL (130-400); Red Blood Cell (RBC) Count 3.08 mill/uL (4.20-5.40); White Blood Cell (WBC) Count 10.08 10x3/uL (4.8-10.8)
[2025-03-27 04:43] LABS: ALT (SGPT) 27 U/L (Less than 34); AST (SGOT) 26 U/L (11-34); Albumin 2.0 g/dL (3.1-4.5); Alkaline Phosphatase 92 U/L (40-110); Anion Gap 16 mmol/L (10-20); BUN (Urea Nitrogen) 9 mg/dL (9.8-20.1); Bilirubin, Total 0.6 mg/dL (0.3-1.2); Calc. Creatinine Clearance 157 mL/min (70-130); Calcium 8.5 mg/dL (7.8-10.44); Carbon Dioxide 22 mmol/L (23-31); Chloride 111 mmol/L (98-107); Globulin 3.1 g/dL (2.4-3.5); Glucose 102 mg/dL (80-115); Potassium 4.1 mmol/L (3.5-5.1); Sodium 145 mmol/L (136-145); Vancomycin, Random 15.7 ug/mL (See Comment)
[2025-03-28 05:56] LABS: #Basophils 0.03 10x3/uL (0.0-0.2); #Eosinophils 0.13 10x3/uL (0.0-0.7); #Monocytes 0.53 10x3/uL (0.11-0.59); #Neutrophils 7.50 10x3/uL (1.40-6.50); %Basophils 0.3 % (0.0-1.0); %Eosinophils 1.3 % (0.0-10.0); %Lymphocytes 13.5 % (21.0-51.0); %Monocytes 5.5 % (0.0-10.0); %Neutrophils 77.2 % (42.0-75.0); Hematocrit 27.9 % (36.0-47.0); Hemoglobin 8.5 g/dL (12.0-16.0); Mean Corpuscular Hemoglobin 28.2 pg (27.0-31.0); Mean Corpuscular Volume 92.7 fL (78.0-98.0); Platelet Count 690 10x3/uL (130-400); Red Blood Cell (RBC) Count 3.01 mill/uL (4.20-5.40); White Blood Cell (WBC) Count 9.71 10x3/uL (4.8-10.8)
[2025-03-28 07:02] LABS: ALT (SGPT) 22 U/L (Less than 34); AST (SGOT) 30 U/L (11-34); Albumin 2.0 g/dL (3.1-4.5); Alkaline Phosphatase 88 U/L (40-110); Anion Gap 10 mmol/L (10-20); BUN (Urea Nitrogen) 9 mg/dL (9.8-20.1); Bilirubin, Total 0.5 mg/dL (0.3-1.2); Calc. Creatinine Clearance 156 mL/min (70-130); Calcium 8.6 mg/dL (7.8-10.44); Carbon Dioxide 24 mmol/L (23-31); Chloride 112 mmol/L (98-107); Globulin 3.6 g/dL (2.4-3.5); Glucose 103 mg/dL (80-115); Potassium 3.5 mmol/L (3.5-5.1); Sodium 142 mmol/L (136-145)
[2025-03-28 12:53] VITALS: BP 195/77; TEMP 98.2
[2025-03-28] MEDS ORDERED: Amoxicillin/Potassium Clav 875 MG TAB PO SCH (21:00)
== END 2025-03-28 17:45 | disposition home or self-care (01) | DRG 871 ==
LOC: ERS 16:35 → CCU 20:57 → IMCU/EMU 03-21 23:22 → 2NO 03-25 19:19
PROVIDERS: ADMIT Internal Medicine; ATTEND Student in an Organized Health Care Education/Training Program
PROC: 3E03329 Introduction of Other Anti-infective into Peripheral Vein, Percutaneous Approach (ICD-10-PCS; principal; 2025-03-20)
PROC: 3E0234Z Introduction of Serum, Toxoid and Vaccine into Muscle, Percutaneous Approach (ICD-10-PCS; 2025-03-20)
PROC: 4A03351 Measurement of Arterial Flow, Peripheral, Percutaneous Approach (ICD-10-PCS; 2025-03-20)
PROC: 5A09357 Assistance with Respiratory Ventilation, Less than 24 Consecutive Hours, Continuous Positive Airway Pressure (ICD-10-PCS; 2025-03-20)
DX: A41.9 Sepsis, unspecified organism (principal); J15.69 Pneumonia due to other Gram-negative bacteria; J96.01 Acute respiratory failure with hypoxia; E87.1 Hypo-osmolality and hyponatremia; N17.9 Acute kidney failure, unspecified; F32.A Depression, unspecified; E87.70 Fluid overload, unspecified; E87.6 Hypokalemia; N18.30 Chronic kidney disease, stage 3 unspecified; Z96.651 Presence of right artificial knee joint; R74.01 Elevation of levels of liver transaminase levels; R65.20 Severe sepsis without septic shock; I48.91 Unspecified atrial fibrillation; F41.9 Anxiety disorder, unspecified; I11.0 Hypertensive heart disease with heart failure; I50.9 Heart failure, unspecified; Z98.890 Other specified postprocedural states; Z87.891 Personal history of nicotine dependence; Z90.49 Acquired absence of other specified parts of digestive tract; Z90.710 Acquired absence of both cervix and uterus; Z79.899 Other long term (current) drug therapy; Z23 Encounter for immunization
CPT/HCPCS: 36415; 71045; 71275; 80048; 80053; 80202; 82805; 83605; 83735; 83880; 84100; 84295; 84484; 85025; 85379; 87040; 87081; 87428; 87449; 87633; 87899; 93005; 93010; 93306; 94640; 94644; 94660; 96365; 96367; 96375; J0456; J0692; J1650; J1956; J2470; J2997; J3373; J3375; J3475; J3480; J7030; J7050; J7611; Q9967

== ENCOUNTER 2025-04-10 07:41 | Inpatient (IN) | payer MEDICARE ==
[2025-04-10] MEDS ORDERED: Ketorolac Tromethamine 30 MG (1 mL) VIAL ONE ×2 (08:43→08:44)
[2025-04-10 09:42] LABS: #Basophils 0.03 10x3/uL (0.0-0.2); #Eosinophils 0.23 10x3/uL (0.0-0.7); #Monocytes 0.79 10x3/uL (0.11-0.59); #Neutrophils 5.59 10x3/uL (1.40-6.50); %Basophils 0.4 % (0.0-1.0); %Eosinophils 2.9 % (0.0-10.0); %Lymphocytes 15.0 % (21.0-51.0); %Monocytes 10.1 % (0.0-10.0); %Neutrophils 71.1 % (42.0-75.0); Hematocrit 29.1 % (36.0-47.0); Hemoglobin 8.8 g/dL (12.0-16.0); Mean Corpuscular Hemoglobin 28.3 pg (27.0-31.0); Mean Corpuscular Volume 93.6 fL (78.0-98.0); Platelet Count 290 10x3/uL (130-400); Red Blood Cell (RBC) Count 3.11 mill/uL (4.20-5.40); White Blood Cell (WBC) Count 7.86 10x3/uL (4.8-10.8)
[2025-04-10 09:55] LABS: ALT (SGPT) 10 U/L (Less than 34); AST (SGOT) 28 U/L (11-34); Albumin 2.7 g/dL (3.1-4.5); Alkaline Phosphatase 113 U/L (40-110); Anion Gap 17 mmol/L (10-20); BUN (Urea Nitrogen) 11 mg/dL (9.8-20.1); Bilirubin, Total 0.8 mg/dL (0.3-1.2); Calc. Creatinine Clearance 0 mL/min (70-130); Calcium 9.2 mg/dL (7.8-10.44); Carbon Dioxide 29 mmol/L (23-31); Chloride 98 mmol/L (98-107); Globulin 3.8 g/dL (2.4-3.5); Glucose 113 mg/dL (80-115); Potassium 3.5 mmol/L (3.5-5.1); Sodium 140 mmol/L (136-145)
[2025-04-10] MEDS ORDERED: cefTRIAXone (ROCEPHIN) 1 GM VIAL ONE (11:32)
[2025-04-10] MEDS ORDERED: Azithromycin 500 MG VIAL ONE (12:26)
[2025-04-10 18:25] VITALS: BMI 47.8
[2025-04-10] MEDS: BuPROPion XL 150 MG ER.TAB PO SCH (20:57)
[2025-04-10] MEDS: Furosemide 40 MG (4 mL) VIAL SLOW IVP SCH (20:57)
[2025-04-11] MEDS: Furosemide 40 MG TAB PO SCH (09:08)
[2025-04-11] MEDS: lamoTRIgine 100 MG TAB PO SCH (09:08)
[2025-04-13] MEDS: Pantoprazole 40 MG DR.TAB PO SCH (08:18)
[2025-04-13] MEDS: Enoxaparin 40 MG (0.4 mL) SYRINGE SC SCH (13:15)
[2025-04-13 17:56] VITALS: BP 165/81; TEMP 97.3
== END 2025-04-13 18:00 | DRG 552 ==
LOC: ERS 07:41 → INTOOBSV 14:09 → ERHOLD 14:09 → T4-A 17:07 → OBSVTOIN 04-12 09:08
PROVIDERS: ADMIT Family Medicine; ATTEND Student in an Organized Health Care Education/Training Program
DX: S22.088A Other fracture of T11-T12 vertebra, initial encounter for closed fracture (principal); J96.11 Chronic respiratory failure with hypoxia; I10 Essential (primary) hypertension; F31.9 Bipolar disorder, unspecified; Z96.653 Presence of artificial knee joint, bilateral; D64.9 Anemia, unspecified; M81.0 Age-related osteoporosis without current pathological fracture; G47.30 Sleep apnea, unspecified; Z90.49 Acquired absence of other specified parts of digestive tract; Z99.81 Dependence on supplemental oxygen; Z98.890 Other specified postprocedural states; Z87.891 Personal history of nicotine dependence; Z79.899 Other long term (current) drug therapy; W19.XXXA Unspecified fall, initial encounter
CPT/HCPCS: 71045; 72128; 72131; 80053; 85025; 96365; 96367; 96375; J0456; J0696; J1650; J1885; J1940